=== PATIENT | female | born 1955 ===

== ENCOUNTER 2017-10-31 14:52 | Inpatient (IN) ==
[2017-10-31] MEDS ORDERED: ACETAMINOPHEN 325 MG TABLET PO PRN (17:07)
[2017-10-31] MEDS ORDERED: ONDANSETRON 4 MG/2 ML VIAL IV PRN (17:07)
[2017-10-31] MEDS ORDERED: ALBUTEROL/IPRATROPIUM 3 ML NEB RESP TX ONE (17:33)
[2017-10-31 18:17] LABS: Basophils % 0.6 % (0.0-0.8); Eosinophils # 0.1 10*3/uL (0.0-0.87); Eosinophils % 1.1 % (0.00-10.9); Hematocrit 36.5 VOL% (35.7-47.0); Hemoglobin 11.8 GM/DL (12.0-16.0); Immature Granulocytes % 0.5 %; Immature Granulocytes Absolute 0.03 #; Lymphocytes # 1.4 10*3/uL (1.4-4.0); Lymphocytes % 20.9 % (21.3-54.2); Mean Corpuscular HGB Conc 32.3 GM/DL (32-36); Mean Corpuscular Hemoglobin 35 PG (27-34); Mean Corpuscular Volume 108.6 FL (87-102); Mean Platelet Volume 9.5 FL (9.6-12.0); Monocytes # 0.6 10*3/uL (0.11-0.8); Monocytes % 8.9 % (1.7-12.7); Neutrophils # 4.5 10*3/uL (1.4-7.4); Platelet Count 131 T/CUMM (130-400); Red Blood Count 3.36 MC/CUMM (3.8-5.5); Red Cell Distribution Width 14.8 % (9.3-17.3); White Blood Count 6.6 T/CUMM (4-12)
[2017-10-31 18:42] LABS: INR 1.3; PT Patient Result 13.1 SECS
[2017-10-31 18:46] LABS: Albumin 2.1 G/DL (3.4-5.0); Bilirubin,Total 4.3 MG/DL (0.2-1.0); Calcium 8.1 MG/DL (8.5-10.1); Osmolality,Calculated 275.5 MOS/KG (273-304); Potassium 3.7 MMOL/L (3.5-5.1)
[2017-10-31] MEDS: ALBUTEROL/IPRATROPIUM 3 ML NEB RESP TX SCH (19:00)
[2017-10-31] MEDS ORDERED: FUROSEMIDE 40 MG/4 ML VIAL IV ONE (19:00)
[2017-10-31] MEDS: LEVOFLOXACIN INJ 750 MG in PREMIX 1 EACH IV SCH (20:34)
[2017-10-31] MEDS: ZALEPLON 5 MG CAPSULE PO PRN (20:50)
[2017-11-01] MEDS: ALBUTEROL/IPRATROPIUM 3 ML NEB RESP TX SCH ×4 (01:00→19:42)
[2017-11-01 04:15] LABS: Basophils # 0.1 10*3/uL (0.0-0.2); Basophils % 0.6 % (0.0-0.8); Eosinophils # 0.1 10*3/uL (0.0-0.87); Eosinophils % 1.4 % (0.00-10.9); Hematocrit 32.6 VOL% (35.7-47.0); Hemoglobin 11.1 GM/DL (12.0-16.0); Immature Granulocytes % 0.6 %; Immature Granulocytes Absolute 0.05 #; Lymphocytes # 1.7 10*3/uL (1.4-4.0); Mean Corpuscular Hemoglobin 35 PG (27-34); Mean Corpuscular Volume 102.8 FL (87-102); Mean Platelet Volume 9.7 FL (9.6-12.0); Monocytes % 12.2 % (1.7-12.7); Neutrophils # 5.4 10*3/uL (1.4-7.4); Neutrophils % 65.2 % (38.7-73.9); Platelet Count 125 T/CUMM (130-400); Red Blood Count 3.17 MC/CUMM (3.8-5.5); White Blood Count 8.3 T/CUMM (4-12)
[2017-11-01 04:56] LABS: Calcium 8.2 MG/DL (8.5-10.1); Potassium 3.6 MMOL/L (3.5-5.1); Thyroid Stimulating Hormone 1.74 uIU/ml (0.358-3.74)
[2017-11-01] MEDS: LEVOTHYROXINE 112 MCG TABLET PO SCH (05:43)
[2017-11-01] MEDS: PANTOPRAZOLE 40 MG TABLET PO SCH (10:03)
[2017-11-01] MEDS: LISINOPRIL 2.5 MG TABLET PO SCH (10:03)
[2017-11-01] MEDS: sitaGLIPtin 100 MG TABLET PO SCH (10:03)
[2017-11-01] MEDS ORDERED: FUROSEMIDE 40 MG/4 ML VIAL IV ONE (13:30)
[2017-11-01 19:04] LABS: RBC,Pleural Fluid 11450 T/CUMM
[2017-11-01 19:05] LABS: Lymphocytes,Pleural Fluid 73 %; Monocytes,Pleural Fluid 14 %; Neutrophils,Pleural Fluid 13 %
[2017-11-01] MEDS: MORPHINE 2 MG/1 ML SYRINGE IV PRN (20:05)
[2017-11-01] MEDS: LEVOFLOXACIN INJ 750 MG in PREMIX 1 EACH IV SCH (20:09)
[2017-11-02] MEDS: ALBUTEROL/IPRATROPIUM 3 ML NEB RESP TX SCH ×4 (00:42→19:48)
[2017-11-02] MEDS: LEVOTHYROXINE 112 MCG TABLET PO SCH (05:41)
[2017-11-02] MEDS: sitaGLIPtin 100 MG TABLET PO SCH (08:49)
[2017-11-02] MEDS: PANTOPRAZOLE 40 MG TABLET PO SCH (08:49)
[2017-11-02] MEDS: LISINOPRIL 2.5 MG TABLET PO SCH (08:49)
[2017-11-02] MEDS: LEVOFLOXACIN INJ 750 MG in PREMIX 1 EACH IV SCH ×3 (20:01→23:44)
[2017-11-03] MEDS: ALBUTEROL/IPRATROPIUM 3 ML NEB RESP TX SCH ×4 (00:22→19:20)
[2017-11-03] MEDS: MORPHINE 2 MG/1 ML SYRINGE IV PRN (03:24)
[2017-11-03] MEDS: LEVOTHYROXINE 112 MCG TABLET PO SCH (06:04)
[2017-11-03] MEDS: PANTOPRAZOLE 40 MG TABLET PO SCH (09:41)
[2017-11-03] MEDS: LISINOPRIL 2.5 MG TABLET PO SCH (09:41)
[2017-11-03] MEDS: sitaGLIPtin 100 MG TABLET PO SCH (09:41)
[2017-11-03] MEDS: ASPIRIN EC 81 MG TABLET PO SCH (09:41)
[2017-11-03] MEDS: LEVOFLOXACIN INJ 750 MG in PREMIX 1 EACH IV SCH (20:58)
[2017-11-03] MEDS: ZALEPLON 5 MG CAPSULE PO PRN (21:11)
[2017-11-04] MEDS: ALBUTEROL/IPRATROPIUM 3 ML NEB RESP TX SCH ×4 (00:55→19:27)
[2017-11-04] MEDS: LEVOTHYROXINE 112 MCG TABLET PO SCH (05:21)
[2017-11-04 05:54] LABS: Basophils % 0.6 % (0.0-0.8); Eosinophils # 0.2 10*3/uL (0.0-0.87); Eosinophils % 4.7 % (0.00-10.9); Hematocrit 27.3 VOL% (35.7-47.0); Hemoglobin 9.2 GM/DL (12.0-16.0); Immature Granulocytes Absolute 0.05 #; Lymphocytes # 1.3 10*3/uL (1.4-4.0); Lymphocytes % 25.3 % (21.3-54.2); Mean Corpuscular HGB Conc 33.7 GM/DL (32-36); Mean Corpuscular Hemoglobin 35 PG (27-34); Mean Corpuscular Volume 104.6 FL (87-102); Mean Platelet Volume 9.8 FL (9.6-12.0); Monocytes # 0.7 10*3/uL (0.11-0.8); Monocytes % 13.1 % (1.7-12.7); Neutrophils # 2.8 10*3/uL (1.4-7.4); Neutrophils % 55.3 % (38.7-73.9); Platelet Count 100 T/CUMM (130-400); Red Blood Count 2.61 MC/CUMM (3.8-5.5); Red Cell Distribution Width 14.9 % (9.3-17.3); White Blood Count 5.1 T/CUMM (4-12)
[2017-11-04 06:03] LABS: Calcium 7.4 MG/DL (8.5-10.1); Osmolality,Calculated 276.7 MOS/KG (273-304); Potassium 3.3 MMOL/L (3.5-5.1)
[2017-11-04 06:15] LABS: Macrocytosis 1+; Platelet Estimate Decreased
[2017-11-04] MEDS: ASPIRIN EC 81 MG TABLET PO SCH (09:21)
[2017-11-04] MEDS: sitaGLIPtin 100 MG TABLET PO SCH (09:21)
[2017-11-04] MEDS: PANTOPRAZOLE 40 MG TABLET PO SCH (09:21)
[2017-11-04] MEDS: LISINOPRIL 2.5 MG TABLET PO SCH (09:22)
[2017-11-04 11:01] LABS: Free T4 (Free Thyroxine) 1.6 NG/DL (0.76-1.46)
[2017-11-04] MEDS ORDERED: MAGNESIUM HYDROXIDE SUSP 30 ML UDCUP PO PRN (18:08)
[2017-11-04] MEDS ORDERED: LEVOFLOXACIN INJ 500 MG in PREMIX 1 EACH IV SCH (22:00)
[2017-11-05] MEDS: ALBUTEROL/IPRATROPIUM 3 ML NEB RESP TX SCH ×3 (01:27→12:55)
[2017-11-05] MEDS: LEVOTHYROXINE 112 MCG TABLET PO SCH (05:44)
[2017-11-05 07:17] LABS: Calcium 7.4 MG/DL (8.5-10.1); Osmolality,Calculated 280.4 MOS/KG (273-304); Potassium 3.6 MMOL/L (3.5-5.1)
[2017-11-05] MEDS: sitaGLIPtin 100 MG TABLET PO SCH (08:57)
[2017-11-05] MEDS: PANTOPRAZOLE 40 MG TABLET PO SCH (08:57)
[2017-11-05] MEDS: ASPIRIN EC 81 MG TABLET PO SCH (08:58)
[2017-11-05] MEDS: LISINOPRIL 2.5 MG TABLET PO SCH (09:00)
[2017-11-05 12:04] VITALS: BP 118/58
== END 2017-11-05 15:53 | disposition home or self-care (01) | DRG 187 ==
LOC: N.4E 16:12 → SUATTDRO 17:02
PROVIDERS: ADMIT Internal Medicine; ATTEND Family Medicine
PROC: IRGDHTC (2017-11-01 15:00)

== ENCOUNTER 2017-11-07 08:55 | Inpatient (IN) ==
[2017-11-07] MEDS ORDERED: ONDANSETRON 4 MG/2 ML VIAL IV PRN (13:02)
[2017-11-07] MEDS: LEVOFLOXACIN INJ 750 MG in PREMIX 1 EACH IV SCH (14:35)
[2017-11-07 16:48] LABS: Carcinoembryonic Antigen 6.2 NG/ML (0.0-5.0); Hepatitis A Ab IgM Quant 0.11 Index; Hepatitis A Ab IgM Result Negative (Negative); Hepatitis B Core IgM Quant 0.18 Index; Hepatitis B Core IgM Result Negative (Negative); Hepatitis B Surface Ag Quant < 0.10 Index; Hepatitis B Surface Ag Result Negative (Negative); Hepatitis C Virus Ab Quant 0.15 Index; Hepatitis C Virus Ab Result Negative (Negative)
[2017-11-07] MEDS ORDERED: FUROSEMIDE 40 MG/4 ML VIAL IV ONE (17:45)
[2017-11-07] MEDS: ENOXAPARIN 40 MG/0.4 ML SYRINGE SUBCUT SCH (20:53)
[2017-11-07] MEDS: SPIRONOLACTONE 25 MG TABLET PO SCH (20:54)
[2017-11-08 05:49] LABS: Basophils % 0.7 % (0.0-0.8); Eosinophils # 0.3 10*3/uL (0.0-0.87); Eosinophils % 5.1 % (0.00-10.9); Hematocrit 32.5 VOL% (35.7-47.0); Hemoglobin 11.1 GM/DL (12.0-16.0); Immature Granulocytes % 0.3 %; Immature Granulocytes Absolute 0.02 #; Lymphocytes # 1.5 10*3/uL (1.4-4.0); Lymphocytes % 25.7 % (21.3-54.2); Mean Corpuscular HGB Conc 34.2 GM/DL (32-36); Mean Corpuscular Hemoglobin 35 PG (27-34); Mean Corpuscular Volume 103.2 FL (87-102); Mean Platelet Volume 9.5 FL (9.6-12.0); Monocytes # 0.6 10*3/uL (0.11-0.8); Monocytes % 10.5 % (1.7-12.7); Neutrophils # 3.3 10*3/uL (1.4-7.4); Neutrophils % 57.7 % (38.7-73.9); Red Blood Count 3.15 MC/CUMM (3.8-5.5); Red Cell Distribution Width 14.6 % (9.3-17.3); White Blood Count 5.7 T/CUMM (4-12)
[2017-11-08] MEDS: LEVOTHYROXINE 112 MCG TABLET PO SCH (06:07)
[2017-11-08 06:16] LABS: Calcium 7.5 MG/DL (8.5-10.1); Osmolality,Calculated 276.5 MOS/KG (273-304); Potassium 3.7 MMOL/L (3.5-5.1)
[2017-11-08 06:25] LABS: Platelet Count 99 T/CUMM (130-400)
[2017-11-08 06:27] LABS: Hypochromasia Slight; Macrocytosis 1+; Platelet Estimate Decreased
[2017-11-08] MEDS: SPIRONOLACTONE 25 MG TABLET PO SCH ×2 (08:39→20:56)
[2017-11-08] MEDS: sitaGLIPtin 100 MG TABLET PO SCH (08:39)
[2017-11-08] MEDS: LEVOFLOXACIN INJ 750 MG in PREMIX 1 EACH IV SCH (13:29)
[2017-11-08] MEDS: ENOXAPARIN 40 MG/0.4 ML SYRINGE SUBCUT SCH (20:56)
[2017-11-09] MEDS: LEVOTHYROXINE 112 MCG TABLET PO SCH (05:33)
[2017-11-09 06:25] LABS: INR 1.2; PT Patient Result 12.7 SECS
[2017-11-09] MEDS: SPIRONOLACTONE 25 MG TABLET PO SCH ×2 (08:54→20:32)
[2017-11-09] MEDS: sitaGLIPtin 100 MG TABLET PO SCH (08:54)
[2017-11-09] MEDS: LEVOFLOXACIN INJ 750 MG in PREMIX 1 EACH IV SCH (16:56)
[2017-11-09] MEDS: MORPHINE 2 MG/1 ML SYRINGE IV PRN (20:33)
[2017-11-09] MEDS: ENOXAPARIN 40 MG/0.4 ML SYRINGE SUBCUT SCH (20:33)
[2017-11-10 06:10] LABS: Basophils % 0.6 % (0.0-0.8); Eosinophils # 0.3 10*3/uL (0.0-0.87); Hematocrit 28.8 VOL% (35.7-47.0); Hemoglobin 9.8 GM/DL (12.0-16.0); Immature Granulocytes % 0.5 %; Immature Granulocytes Absolute 0.03 #; Lymphocytes # 1.5 10*3/uL (1.4-4.0); Lymphocytes % 23.5 % (21.3-54.2); Mean Corpuscular Hemoglobin 35 PG (27-34); Mean Platelet Volume 9.6 FL (9.6-12.0); Monocytes # 0.6 10*3/uL (0.11-0.8); Monocytes % 9.4 % (1.7-12.7); Neutrophils # 3.8 10*3/uL (1.4-7.4); Red Blood Count 2.77 MC/CUMM (3.8-5.5); Red Cell Distribution Width 14.5 % (9.3-17.3); White Blood Count 6.2 T/CUMM (4-12)
[2017-11-10] MEDS: LEVOTHYROXINE 112 MCG TABLET PO SCH (06:17)
[2017-11-10 06:21] LABS: Platelet Count 88 T/CUMM (130-400)
[2017-11-10 06:29] LABS: Hypochromasia 2+; Platelet Estimate Decreased
[2017-11-10 06:44] LABS: Albumin 1.7 G/DL (3.4-5.0); Bilirubin,Total 2.7 MG/DL (0.2-1.0); Calcium 7.7 MG/DL (8.5-10.1); Osmolality,Calculated 274.7 MOS/KG (273-304); Potassium 3.8 MMOL/L (3.5-5.1); Total Protein 6.3 G/DL (6.4-8.3)
[2017-11-10] MEDS: sitaGLIPtin 100 MG TABLET PO SCH (08:41)
[2017-11-10] MEDS: SPIRONOLACTONE 25 MG TABLET PO SCH ×2 (08:41→20:43)
[2017-11-10] MEDS: LEVOFLOXACIN INJ 750 MG in PREMIX 1 EACH IV SCH (14:36)
[2017-11-10] MEDS: ENOXAPARIN 40 MG/0.4 ML SYRINGE SUBCUT SCH (20:44)
[2017-11-10] MEDS: MORPHINE 2 MG/1 ML SYRINGE IV PRN (23:39)
[2017-11-11 03:09] LABS: INR 1.2; PT Patient Result 12.8 SECS
[2017-11-11 03:18] LABS: Partial Thromboplastin Time 41.6 SECS (0-40)
[2017-11-11] MEDS ORDERED: SODIUM CHLORIDE 0.9% 1,000 ML IV PRN (03:24)
[2017-11-11] MEDS: LEVOTHYROXINE 112 MCG TABLET PO SCH (06:22)
[2017-11-11] MEDS ORDERED: ONDANSETRON 4 MG/2 ML VIAL IV PRN (09:17)
[2017-11-11] MEDS ORDERED: LIDOCAINE 1% INTRAPLEUR ONE (13:00)
[2017-11-11] MEDS ORDERED: NALOXONE 0.4 MG/ML VIAL IV PRN ×2 (13:39→15:34)
[2017-11-11] MEDS: MORPHINE 2 MG/1 ML SYRINGE IV PRN (13:45)
[2017-11-11] MEDS ORDERED: HYDROmorphone PCA 30 MG/30 ML SYRINGE IV SCH (14:00)
[2017-11-11] MEDS: LEVOFLOXACIN INJ 750 MG in PREMIX 1 EACH IV SCH (14:33)
[2017-11-11] MEDS: sitaGLIPtin 100 MG TABLET PO SCH (14:34)
[2017-11-11] MEDS: SPIRONOLACTONE 25 MG TABLET PO SCH ×2 (14:34→21:33)
[2017-11-11] MEDS: DOXYCYCLINE HYCLATE INTRAPLEUR SCH ×2 (15:37→15:38)
[2017-11-11] MEDS: MORPHINE PCA 30 MG/30 ML SYRINGE IV SCH (16:27)
[2017-11-11] MEDS: ENOXAPARIN 40 MG/0.4 ML SYRINGE SUBCUT SCH (21:33)
[2017-11-12 05:18] LABS: Basophils % 0.6 % (0.0-0.8); Eosinophils # 0.3 10*3/uL (0.0-0.87); Eosinophils % 3.9 % (0.00-10.9); Hematocrit 32.1 VOL% (35.7-47.0); Hemoglobin 10.9 GM/DL (12.0-16.0); Immature Granulocytes % 0.6 %; Immature Granulocytes Absolute 0.04 #; Lymphocytes # 1.3 10*3/uL (1.4-4.0); Lymphocytes % 20.1 % (21.3-54.2); Mean Corpuscular Hemoglobin 36 PG (27-34); Mean Platelet Volume 9.6 FL (9.6-12.0); Monocytes # 0.8 10*3/uL (0.11-0.8); Monocytes % 12.1 % (1.7-12.7); NRBC # 0.03 10*3/uL; Neutrophils # 4.1 10*3/uL (1.4-7.4); Neutrophils % 62.7 % (38.7-73.9); Red Cell Distribution Width 14.3 % (9.3-17.3); White Blood Count 6.5 T/CUMM (4-12)
[2017-11-12 05:23] LABS: Platelet Count 88 T/CUMM (130-400)
[2017-11-12 05:42] LABS: Hypochromasia 1+; Macrocytosis 1+
[2017-11-12 05:43] LABS: Platelet Estimate Decreased
[2017-11-12] MEDS: LEVOTHYROXINE 112 MCG TABLET PO SCH (06:09)
[2017-11-12] MEDS: sitaGLIPtin 100 MG TABLET PO SCH (08:58)
[2017-11-12] MEDS: SPIRONOLACTONE 25 MG TABLET PO SCH ×2 (08:58→20:45)
[2017-11-12] MEDS ORDERED: ALBUTEROL/IPRATROPIUM 3 ML NEB RESP TX PRN (10:38)
[2017-11-12] MEDS ORDERED: ALBUTEROL/IPRATROPIUM 3 ML NEB RESP TX SCH (13:00)
[2017-11-12] MEDS: LEVOFLOXACIN INJ 750 MG in PREMIX 1 EACH IV SCH (13:13)
[2017-11-12] MEDS: MORPHINE PCA 30 MG/30 ML SYRINGE IV SCH (15:10)
[2017-11-12] MEDS: POLYETHYLENE GLYCOL POWDER 17 GM PACK PO SCH (20:44)
[2017-11-12] MEDS: ENOXAPARIN 40 MG/0.4 ML SYRINGE SUBCUT SCH (20:45)
[2017-11-13] MEDS: LEVOTHYROXINE 112 MCG TABLET PO SCH (06:27)
[2017-11-13] MEDS: POLYETHYLENE GLYCOL POWDER 17 GM PACK PO SCH (08:43)
[2017-11-13] MEDS: sitaGLIPtin 100 MG TABLET PO SCH (08:43)
[2017-11-13] MEDS: SPIRONOLACTONE 25 MG TABLET PO SCH ×2 (08:43→20:35)
[2017-11-13] MEDS ORDERED: MORPHINE 4 MG/1 ML VIAL IV PRN (11:57)
[2017-11-13] MEDS: LEVOFLOXACIN INJ 750 MG in PREMIX 1 EACH IV SCH (14:05)
[2017-11-13] MEDS: MORPHINE PCA 30 MG/30 ML SYRINGE IV SCH (15:22)
[2017-11-13] MEDS: LACTULOSE 20 GM/30 ML UDCUP PO SCH (20:34)
[2017-11-13] MEDS: ENOXAPARIN 40 MG/0.4 ML SYRINGE SUBCUT SCH (20:35)
[2017-11-14] MEDS: LEVOTHYROXINE 112 MCG TABLET PO SCH (06:51)
[2017-11-14] MEDS ORDERED: sitaGLIPtin 100 MG TABLET PO SCH (08:24)
[2017-11-14] MEDS: sitaGLIPtin 25 MG TABLET PO SCH (09:11)
[2017-11-14] MEDS: LACTULOSE 20 GM/30 ML UDCUP PO SCH ×2 (09:11→20:04)
[2017-11-14] MEDS: SPIRONOLACTONE 25 MG TABLET PO SCH ×2 (09:11→20:03)
[2017-11-14] MEDS: LEVOFLOXACIN INJ 750 MG in PREMIX 1 EACH IV SCH (14:15)
[2017-11-14] MEDS: ENOXAPARIN 40 MG/0.4 ML SYRINGE SUBCUT SCH (20:04)
[2017-11-15 03:31] LABS: Basophils # 0.1 10*3/uL (0.0-0.2); Eosinophils # 0.3 10*3/uL (0.0-0.87); Eosinophils % 5.8 % (0.00-10.9); Hematocrit 29.6 VOL% (35.7-47.0); Hemoglobin 9.7 GM/DL (12.0-16.0); Immature Granulocytes % 0.2 %; Immature Granulocytes Absolute 0.01 #; Lymphocytes # 1.4 10*3/uL (1.4-4.0); Mean Corpuscular HGB Conc 32.8 GM/DL (32-36); Mean Corpuscular Hemoglobin 35 PG (27-34); Mean Corpuscular Volume 107.2 FL (87-102); Mean Platelet Volume 9.4 FL (9.6-12.0); Monocytes # 0.6 10*3/uL (0.11-0.8); Neutrophils # 2.6 10*3/uL (1.4-7.4); Platelet Count 79 T/CUMM (130-400); Red Blood Count 2.76 MC/CUMM (3.8-5.5); White Blood Count 4.9 T/CUMM (4-12)
[2017-11-15 03:44] LABS: Calcium 7.7 MG/DL (8.5-10.1); Osmolality,Calculated 274.7 MOS/KG (273-304); Potassium 4.1 MMOL/L (3.5-5.1)
[2017-11-15] MEDS: LEVOTHYROXINE 112 MCG TABLET PO SCH (06:13)
[2017-11-15 08:23] VITALS: BP 132/59
[2017-11-15] MEDS: SPIRONOLACTONE 25 MG TABLET PO SCH (08:30)
[2017-11-15] MEDS: sitaGLIPtin 25 MG TABLET PO SCH (08:30)
[2017-11-15] MEDS: LACTULOSE 20 GM/30 ML UDCUP PO SCH (08:33)
== END 2017-11-15 08:50 | disposition home or self-care (01) | DRG 433 ==
LOC: SUATTDRO 11:21 → N.4E 11:21
PROVIDERS: ADMIT Family Medicine; ATTEND Internal Medicine
PROC: IRGDHTC (2017-11-09 15:10)

== ENCOUNTER 2017-11-18 14:00 | Inpatient (IN) ==
[2017-11-18] MEDS ORDERED: ONDANSETRON 4 MG/2 ML VIAL IV PRN (18:58)
[2017-11-18] MEDS ORDERED: DOCUSATE SODIUM 100 MG CAPSULE PO PRN (18:58)
[2017-11-18] MEDS ORDERED: ACETAMINOPHEN 325 MG TABLET PO PRN (18:58)
[2017-11-18] MEDS ORDERED: DEXTROSE 50% 25 GM/50 ML VIAL IV PRN (19:00)
[2017-11-18] MEDS ORDERED: GLUCAGON 1 MG VIAL IM PRN (19:00)
[2017-11-18] MEDS: SPIRONOLACTONE 25 MG TABLET PO SCH (20:25)
[2017-11-18] MEDS: LACTULOSE 20 GM/30 ML UDCUP PO SCH (20:25)
[2017-11-18] MEDS: INSULIN REGULAR 100 UNIT/ML SUBCUT SCH (21:33)
[2017-11-19 06:02] LABS: Basophils % 0.5 % (0.0-0.8); Eosinophils # 0.3 10*3/uL (0.0-0.87); Eosinophils % 4.3 % (0.00-10.9); Hematocrit 32.4 VOL% (35.7-47.0); Hemoglobin 11.1 GM/DL (12.0-16.0); Immature Granulocytes % 0.5 %; Immature Granulocytes Absolute 0.03 #; Lymphocytes # 1.8 10*3/uL (1.4-4.0); Lymphocytes % 31.3 % (21.3-54.2); Mean Corpuscular HGB Conc 34.3 GM/DL (32-36); Mean Corpuscular Hemoglobin 36 PG (27-34); Mean Corpuscular Volume 105.2 FL (87-102); Mean Platelet Volume 9.5 FL (9.6-12.0); Monocytes # 0.7 10*3/uL (0.11-0.8); Monocytes % 11.7 % (1.7-12.7); Neutrophils % 51.7 % (38.7-73.9); Platelet Count 90 T/CUMM (130-400); Red Blood Count 3.08 MC/CUMM (3.8-5.5); Red Cell Distribution Width 15.9 % (9.3-17.3); White Blood Count 5.9 T/CUMM (4-12)
[2017-11-19] MEDS: LEVOTHYROXINE 112 MCG TABLET PO SCH (06:09)
[2017-11-19 06:22] LABS: Giant Platelets Few; Hypochromasia 1+; Platelet Estimate Decreased
[2017-11-19 06:28] LABS: Calcium 7.9 MG/DL (8.5-10.1); Osmolality,Calculated 274.7 MOS/KG (273-304); Potassium 4.2 MMOL/L (3.5-5.1)
[2017-11-19] MEDS: LISINOPRIL 2.5 MG TABLET PO SCH (08:19)
[2017-11-19] MEDS: sitaGLIPtin 100 MG TABLET PO SCH (08:20)
[2017-11-19] MEDS: PANTOPRAZOLE 40 MG TABLET PO SCH (08:20)
[2017-11-19] MEDS: hydroCHLOROthiazide 12.5 MG CAPSULE PO SCH (08:20)
[2017-11-19] MEDS: ASPIRIN EC 81 MG TABLET PO SCH (08:20)
[2017-11-19] MEDS: LACTULOSE 20 GM/30 ML UDCUP PO SCH ×2 (08:20→21:26)
[2017-11-19] MEDS: SPIRONOLACTONE 25 MG TABLET PO SCH ×2 (08:20→21:27)
[2017-11-19] MEDS: INSULIN REGULAR 100 UNIT/ML SUBCUT SCH ×4 (08:22→21:28)
[2017-11-19 09:26] LABS: INR 1.2
[2017-11-20] MEDS: INSULIN REGULAR 100 UNIT/ML SUBCUT SCH ×4 (07:53→20:50)
[2017-11-20] MEDS: hydroCHLOROthiazide 12.5 MG CAPSULE PO SCH (08:42)
[2017-11-20] MEDS: ASPIRIN EC 81 MG TABLET PO SCH (08:43)
[2017-11-20] MEDS: PANTOPRAZOLE 40 MG TABLET PO SCH (08:43)
[2017-11-20] MEDS: LEVOTHYROXINE 112 MCG TABLET PO SCH (08:43)
[2017-11-20] MEDS: sitaGLIPtin 100 MG TABLET PO SCH (08:43)
[2017-11-20] MEDS: SPIRONOLACTONE 25 MG TABLET PO SCH ×2 (08:44→20:15)
[2017-11-20] MEDS: LACTULOSE 20 GM/30 ML UDCUP PO SCH ×2 (08:44→20:19)
[2017-11-20] MEDS: LISINOPRIL 2.5 MG TABLET PO SCH (09:11)
[2017-11-21 05:13] LABS: Calcium 7.9 MG/DL (8.5-10.1)
[2017-11-21 05:14] LABS: Osmolality,Calculated 273.8 MOS/KG (273-304); Potassium 4.3 MMOL/L (3.5-5.1)
[2017-11-21] MEDS: LEVOTHYROXINE 112 MCG TABLET PO SCH (05:47)
[2017-11-21] MEDS: INSULIN REGULAR 100 UNIT/ML SUBCUT SCH ×4 (08:46→20:51)
[2017-11-21] MEDS: LISINOPRIL 2.5 MG TABLET PO SCH (09:18)
[2017-11-21] MEDS: sitaGLIPtin 100 MG TABLET PO SCH (09:18)
[2017-11-21] MEDS: LACTULOSE 20 GM/30 ML UDCUP PO SCH ×2 (09:18→20:51)
[2017-11-21] MEDS: SPIRONOLACTONE 25 MG TABLET PO SCH ×2 (09:18→20:51)
[2017-11-21] MEDS: ASPIRIN EC 81 MG TABLET PO SCH (09:18)
[2017-11-21] MEDS: PANTOPRAZOLE 40 MG TABLET PO SCH (09:18)
[2017-11-21] MEDS: FUROSEMIDE 40 MG TABLET PO SCH (09:18)
[2017-11-22] MEDS: LEVOTHYROXINE 112 MCG TABLET PO SCH (06:12)
[2017-11-22] MEDS: INSULIN REGULAR 100 UNIT/ML SUBCUT SCH ×4 (07:55→21:06)
[2017-11-22] MEDS: sitaGLIPtin 100 MG TABLET PO SCH (09:31)
[2017-11-22] MEDS: FUROSEMIDE 40 MG TABLET PO SCH (09:31)
[2017-11-22] MEDS: PANTOPRAZOLE 40 MG TABLET PO SCH (09:31)
[2017-11-22] MEDS: ASPIRIN EC 81 MG TABLET PO SCH (09:31)
[2017-11-22] MEDS: SPIRONOLACTONE 25 MG TABLET PO SCH ×2 (09:31→21:06)
[2017-11-22] MEDS: LISINOPRIL 2.5 MG TABLET PO SCH (09:31)
[2017-11-22] MEDS: LACTULOSE 20 GM/30 ML UDCUP PO SCH ×2 (09:32→21:01)
[2017-11-23 05:02] LABS: Basophils % 0.5 % (0.0-0.8); Eosinophils # 0.7 10*3/uL (0.0-0.87); Eosinophils % 9.1 % (0.00-10.9); Hematocrit 28.7 VOL% (35.7-47.0); Hemoglobin 9.6 GM/DL (12.0-16.0); Immature Granulocytes % 0.3 %; Immature Granulocytes Absolute 0.02 #; Lymphocytes # 1.8 10*3/uL (1.4-4.0); Lymphocytes % 22.4 % (21.3-54.2); Mean Corpuscular HGB Conc 33.4 GM/DL (32-36); Mean Corpuscular Hemoglobin 36 PG (27-34); Mean Corpuscular Volume 107.9 FL (87-102); Monocytes # 0.9 10*3/uL (0.11-0.8); Monocytes % 11.7 % (1.7-12.7); Neutrophils # 4.4 10*3/uL (1.4-7.4); Red Blood Count 2.66 MC/CUMM (3.8-5.5); Red Cell Distribution Width 16.2 % (9.3-17.3); White Blood Count 7.8 T/CUMM (4-12)
[2017-11-23 05:09] LABS: Platelet Count 97 T/CUMM (130-400)
[2017-11-23 05:30] LABS: Albumin 1.6 G/DL (3.4-5.0); Bilirubin,Total 2.9 MG/DL (0.2-1.0); Calcium 7.9 MG/DL (8.5-10.1); Osmolality,Calculated 278.7 MOS/KG (273-304); Potassium 3.8 MMOL/L (3.5-5.1); Total Protein 5.9 G/DL (6.4-8.3)
[2017-11-23] MEDS: LEVOTHYROXINE 112 MCG TABLET PO SCH (06:35)
[2017-11-23] MEDS: INSULIN REGULAR 100 UNIT/ML SUBCUT SCH ×4 (07:59→20:28)
[2017-11-23] MEDS: LISINOPRIL 2.5 MG TABLET PO SCH (10:17)
[2017-11-23] MEDS: sitaGLIPtin 100 MG TABLET PO SCH (10:17)
[2017-11-23] MEDS: FUROSEMIDE 40 MG TABLET PO SCH (10:17)
[2017-11-23] MEDS: SPIRONOLACTONE 25 MG TABLET PO SCH (10:17)
[2017-11-23] MEDS: PANTOPRAZOLE 40 MG TABLET PO SCH (10:17)
[2017-11-23] MEDS: LACTULOSE 20 GM/30 ML UDCUP PO SCH ×2 (10:18→20:25)
[2017-11-23] MEDS: ASPIRIN EC 81 MG TABLET PO SCH (10:18)
[2017-11-24] MEDS: LEVOTHYROXINE 112 MCG TABLET PO SCH (06:15)
[2017-11-24] MEDS: INSULIN REGULAR 100 UNIT/ML SUBCUT SCH ×2 (07:38→13:15)
[2017-11-24] MEDS ORDERED: FUROSEMIDE 20 MG TABLET PO SCH (09:00)
[2017-11-24] MEDS ORDERED: FOLIC ACID 1 MG TABLET PO SCH (09:00)
[2017-11-24] MEDS ORDERED: SPIRONOLACTONE 100 MG TABLET PO SCH (09:00)
[2017-11-24] MEDS: LACTULOSE 20 GM/30 ML UDCUP PO SCH (09:26)
[2017-11-24] MEDS: PANTOPRAZOLE 40 MG TABLET PO SCH (09:27)
[2017-11-24] MEDS: sitaGLIPtin 100 MG TABLET PO SCH (09:27)
[2017-11-24] MEDS: ASPIRIN EC 81 MG TABLET PO SCH (09:28)
[2017-11-24 12:08] VITALS: BP 100/45
== END 2017-11-24 15:53 | disposition home or self-care (01) | DRG 187 ==
LOC: SUATTDRO 17:45 → N.2E 17:45
PROVIDERS: ADMIT Internal Medicine; ATTEND Hospitalist

== ENCOUNTER 2017-12-20 06:58 | Inpatient (IN) ==
[2017-12-20] MEDS ORDERED: DEXTROSE 50% 25 GM/50 ML VIAL IV PRN ×2 (10:00→10:01)
[2017-12-20] MEDS ORDERED: GLUCAGON 1 MG VIAL IM PRN ×2 (10:00→10:01)
[2017-12-20] MEDS ORDERED: LEVOFLOXACIN INJ 500 MG in PREMIX 1 EACH IV SCH (10:00)
[2017-12-20] MEDS ORDERED: LEVOFLOXACIN INJ 100 ML IV ONE (11:15)
[2017-12-20] MEDS: LACTULOSE 20 GM/30 ML UDCUP PO SCH ×2 (11:25→21:31)
[2017-12-20 11:32] LABS: Ammonia 41 UMOL/L (11-32)
[2017-12-20] MEDS: SODIUM CHLORIDE 0.9% 1,000 ML IV SCH (11:34)
[2017-12-20 11:37] LABS: Lactic Acid 4.1 MMOL/L (0.4-2.0)
[2017-12-20 11:39] LABS: INR 1.7; PT Patient Result 18.1 SECS
[2017-12-20 11:51] LABS: Partial Thromboplastin Time 45.8 SECS (0-40)
[2017-12-20] MEDS: SPIRONOLACTONE 50 MG TABLET PO SCH (12:05)
[2017-12-20] MEDS: INSULIN REGULAR 100 UNIT/ML SUBCUT SCH ×3 (16:37→21:31)
[2017-12-20] MEDS: ACETAMINOPHEN 325 MG TABLET PO PRN (17:50)
[2017-12-20] MEDS: ZALEPLON 5 MG CAPSULE PO PRN (21:31)
[2017-12-20] MEDS: ONDANSETRON 4 MG/2 ML VIAL IV PRN (21:31)
[2017-12-21] MEDS ORDERED: ALBUMIN 5% 25 GM in PREMIX 1 EACH IV ONE (00:50)
[2017-12-21] MEDS: SODIUM CHLORIDE 0.9% 1,000 ML IV SCH ×3 (01:24→13:10)
[2017-12-21] MEDS ORDERED: ALBUMIN 25% 25 GM in PREMIX 1 EACH IV ONE (01:30)
[2017-12-21] MEDS ORDERED: SODIUM CHLORIDE 0.9% 250 ML IV ONE (02:50)
[2017-12-21] MEDS: ONDANSETRON 4 MG/2 ML VIAL IV PRN ×2 (04:13→08:53)
[2017-12-21] MEDS ORDERED: SODIUM CHLORIDE 0.9% 500 ML IV ONE (05:13)
[2017-12-21 05:37] LABS: Basophils % 0.1 % (0.0-0.8); Eosinophils # 0.1 10*3/uL (0.0-0.87); Eosinophils % 0.4 % (0.00-10.9); Immature Granulocytes % 4.9 %; Immature Granulocytes Absolute 0.89 #; Lymphocytes # 2.8 10*3/uL (1.4-4.0); Lymphocytes % 15.4 % (21.3-54.2); Mean Corpuscular HGB Conc 32.7 GM/DL (32-36); Mean Corpuscular Hemoglobin 37 PG (27-34); Mean Corpuscular Volume 112.5 FL (87-102); Mean Platelet Volume 9.9 FL (9.6-12.0); Monocytes % 10.9 % (1.7-12.7); NRBC # 0.06 10*3/uL; Neutrophils # 12.3 10*3/uL (1.4-7.4); Neutrophils % 68.3 % (38.7-73.9); Platelet Count 110 T/CUMM (130-400); Red Blood Count 1.52 MC/CUMM (3.8-5.5); Red Cell Distribution Width 16.7 % (9.3-17.3)
[2017-12-21 05:42] LABS: Hematocrit 17.1 VOL% (35.7-47.0); Hemoglobin 5.6 GM/DL (12.0-16.0)
[2017-12-21] MEDS ORDERED: NOREPINEPHRINE 4 MG/4 ML VIAL IV ONE (05:59)
[2017-12-21] MEDS: NOREPINEPHRINE 8 MG in SODIUM CHLORIDE 0.9% 242 ML IV PRN ×2 (06:00→10:26)
[2017-12-21 06:06] LABS: Hypochromasia 1+; Lymphocytes 11 % (20-55); Ovalocytes Slight; Platelet Estimate Decreased; Segmented Neutrophils 77 % (50-85); Total Cells Counted 100
[2017-12-21 06:11] LABS: Albumin 1.5 G/DL (3.4-5.0); Bilirubin,Total 6.7 MG/DL (0.2-1.0); Calcium 7.2 MG/DL (8.5-10.1); Osmolality,Calculated 283.1 MOS/KG (273-304); Total Protein 4.8 G/DL (6.4-8.3)
[2017-12-21] MEDS ORDERED: SODIUM CHLORIDE 0.9% 1,000 ML IV PRN ×2 (06:25→06:48)
[2017-12-21 06:26] LABS: Basophils % 0.1 % (0.0-0.8); Eosinophils # 0.1 10*3/uL (0.0-0.87); Eosinophils % 0.3 % (0.00-10.9); Hematocrit 18.9 VOL% (35.7-47.0); Immature Granulocytes % 4.4 %; Immature Granulocytes Absolute 0.77 #; Lymphocytes # 2.9 10*3/uL (1.4-4.0); Lymphocytes % 16.5 % (21.3-54.2); Mean Corpuscular HGB Conc 32.8 GM/DL (32-36); Mean Corpuscular Hemoglobin 37 PG (27-34); Mean Corpuscular Volume 111.8 FL (87-102); Monocytes # 1.9 10*3/uL (0.11-0.8); Monocytes % 10.9 % (1.7-12.7); NRBC # 0.08 10*3/uL; Neutrophils # 11.8 10*3/uL (1.4-7.4); Neutrophils % 67.8 % (38.7-73.9); Platelet Count 122 T/CUMM (130-400); Red Blood Count 1.69 MC/CUMM (3.8-5.5); Red Cell Distribution Width 16.5 % (9.3-17.3); White Blood Count 17.4 T/CUMM (4-12)
[2017-12-21 06:30] LABS: Potassium 6.5 MMOL/L (3.5-5.1)
[2017-12-21] MEDS ORDERED: SODIUM POLYSTYRENE SULFATE 15 GM/60 ML BOTTLE PO ONE ×3 (06:34→21:00)
[2017-12-21 06:37] LABS: INR 2.4
[2017-12-21 06:45] LABS: Hemoglobin 6.2 GM/DL (12.0-16.0); PT Patient Result 24.3 SECS; Partial Thromboplastin Time 52.1 SECS (0-40)
[2017-12-21 06:46] LABS: Albumin 1.6 G/DL (3.4-5.0); Bilirubin,Total 7.1 MG/DL (0.2-1.0); Calcium 7.2 MG/DL (8.5-10.1); Osmolality,Calculated 280.2 MOS/KG (273-304); Total Protein 4.9 G/DL (6.4-8.3)
[2017-12-21] MEDS: LEVOTHYROXINE 112 MCG TABLET PO SCH (06:46)
[2017-12-21 06:53] LABS: Amorphous Crystals,Urine Occasional /HPF (Few); Apearance,Urine CLOUDY (Clear); Blood, Urine Small mg/dL (Negative); Glucose,Urine (UA) 50 mg/dL (Negative); Ketones,Urine Negative (Negative); Nitrite,Urine Negative (Negative); Protein,Urine 30 MG/DL; Squamous Epithelial Cell,Urine Few /HPF (0-10); Urine Color Amber (Yellow); Urine Specific Gravity 1.021 (1.001-1.035); WBC,Urine 7 /HPF (0-6)
[2017-12-21 06:54] LABS: Albumin 1.6 G/DL (3.4-5.0); Bilirubin,Direct 4.92 MG/DL (0.0-0.20); Bilirubin,Indirect 1.9 MG/DL (0.0-1.0); Bilirubin,Total 6.8 MG/DL (0.2-1.0); Total Protein 5.1 G/DL (6.4-8.3)
[2017-12-21 06:55] LABS: Bilirubin,Urine Moderate mg/dL (Negative)
[2017-12-21 06:58] LABS: Potassium 6.7 MMOL/L (3.5-5.1)
[2017-12-21 07:00] LABS: Band Neutrophils 2 % (0-10); Hypochromasia 1+; Lymphocytes 14 % (20-55); Nucleated Red Blood Cells 1 (0-5); Ovalocytes Slight; Platelet Estimate Normal; Segmented Neutrophils 72 % (50-85); Total Cells Counted 100
[2017-12-21] MEDS: INSULIN REGULAR 100 UNIT/ML SUBCUT SCH ×4 (08:16→22:00)
[2017-12-21] MEDS: OCTREOTIDE 500 MCG in SODIUM CHLORIDE 0.9% 100 ML IV SCH ×2 (08:32→20:00)
[2017-12-21] MEDS ORDERED: OCTREOTIDE 100 MCG/ML SYRINGE IV ONE (09:00)
[2017-12-21] MEDS: PHYTONADIONE 10 MG/1 ML AMP SUBCUT SCH (09:15)
[2017-12-21] MEDS: LEVOFLOXACIN INJ 250 MG in PREMIX 1 EACH IV SCH (09:16)
[2017-12-21] MEDS: LACTULOSE 20 GM/30 ML UDCUP PO SCH ×2 (10:19→21:47)
[2017-12-21] MEDS: SPIRONOLACTONE 50 MG TABLET PO SCH (10:26)
[2017-12-21] MEDS: PANTOPRAZOLE 40 MG VIAL IV SCH (10:28)
[2017-12-21 12:39] LABS: Calcium 7.6 MG/DL (8.5-10.1)
[2017-12-21] MEDS: NOREPINEPHRINE 16 MG in SODIUM CHLORIDE 0.9% 234 ML IV PRN ×2 (14:23→20:48)
[2017-12-21] MEDS ORDERED: FUROSEMIDE 40 MG/4 ML VIAL IV ONE (14:31)
[2017-12-21 18:55] LABS: Hematocrit 24.5 VOL% (35.7-47.0); Hemoglobin 8.3 GM/DL (12.0-16.0)
[2017-12-21] MEDS: ZALEPLON 5 MG CAPSULE PO PRN (21:51)
[2017-12-22] MEDS: NOREPINEPHRINE 16 MG in SODIUM CHLORIDE 0.9% 234 ML IV PRN ×2 (04:21→11:45)
[2017-12-22 05:34] LABS: INR 1.6; PT Patient Result 16.4 SECS
[2017-12-22 05:53] LABS: Calcium 7.4 MG/DL (8.5-10.1); Osmolality,Calculated 291.7 MOS/KG (273-304); Potassium 4.5 MMOL/L (3.5-5.1)
[2017-12-22 06:07] LABS: Bilirubin,Direct 5.43 MG/DL (0.0-0.20); Bilirubin,Indirect 2.6 MG/DL (0.0-1.0); Total Protein 5.8 G/DL (6.4-8.3)
[2017-12-22] MEDS: LEVOTHYROXINE 112 MCG TABLET PO SCH (06:13)
[2017-12-22] MEDS: SODIUM CHLORIDE 0.9% 1,000 ML IV SCH ×2 (06:34→09:16)
[2017-12-22] MEDS: OCTREOTIDE 500 MCG in SODIUM CHLORIDE 0.9% 100 ML IV SCH (06:49)
[2017-12-22] MEDS: INSULIN REGULAR 100 UNIT/ML SUBCUT SCH ×4 (08:52→21:58)
[2017-12-22] MEDS: LACTULOSE 20 GM/30 ML UDCUP PO SCH ×2 (08:52→21:30)
[2017-12-22] MEDS ORDERED: ETOMIDATE 20 MG/10 ML VIAL IV ONE (09:14)
[2017-12-22] MEDS ORDERED: LIDOCAINE 1% 5 ML VIAL ONE (09:14)
[2017-12-22 09:18] LABS: Basophils # 0.1 10*3/uL (0.0-0.2); Basophils % 0.4 % (0.0-0.8); Eosinophils # 0.4 10*3/uL (0.0-0.87); Eosinophils % 2.7 % (0.00-10.9); Hematocrit 26.1 VOL% (35.7-47.0); Hemoglobin 8.7 GM/DL (12.0-16.0); Immature Granulocytes % 6.6 %; Immature Granulocytes Absolute 1.03 #; Lymphocytes # 2.9 10*3/uL (1.4-4.0); Lymphocytes % 18.8 % (21.3-54.2); Mean Corpuscular HGB Conc 33.3 GM/DL (32-36); Mean Corpuscular Hemoglobin 34 PG (27-34); Mean Platelet Volume 9.3 FL (9.6-12.0); Monocytes # 2.5 10*3/uL (0.11-0.8); Monocytes % 16.2 % (1.7-12.7); NRBC # 0.23 10*3/uL; Neutrophils # 8.7 10*3/uL (1.4-7.4); Neutrophils % 55.3 % (38.7-73.9); Platelet Count 130 T/CUMM (130-400); Red Blood Count 2.56 MC/CUMM (3.8-5.5); Red Cell Distribution Width 19.8 % (9.3-17.3); White Blood Count 15.7 T/CUMM (4-12)
[2017-12-22 09:44] LABS: Eosinophils 2 % (0-10); Lymphocytes 17 % (20-55); Nucleated Red Blood Cells 2 (0-5); Segmented Neutrophils 66 % (50-85); Total Cells Counted 100
[2017-12-22] MEDS ORDERED: PANTOPRAZOLE 40 MG VIAL IV ONE (09:44)
[2017-12-22 09:46] LABS: Hypochromasia 1+; Polychromasia Slight
[2017-12-22 09:47] LABS: Microcytosis Slight
[2017-12-22] MEDS: PANTOPRAZOLE 40 MG VIAL IV SCH ×3 (09:58→21:30)
[2017-12-22] MEDS: LEVOFLOXACIN INJ 250 MG in PREMIX 1 EACH IV SCH (09:58)
[2017-12-22] MEDS: PHYTONADIONE 10 MG/1 ML AMP SUBCUT SCH (09:59)
[2017-12-22] MEDS: METOCLOPRAMIDE 10 MG/2 ML VIAL IV SCH ×2 (12:31→18:14)
[2017-12-22] MEDS ORDERED: SODIUM CHLORIDE 0.9% 1,000 ML IV PRN (14:27)
[2017-12-22] MEDS ORDERED: ERTAPENEM 1,000 MG in SODIUM CHLORIDE 0.9% 100 ML IV SCH (15:30)
[2017-12-22] MEDS: ERTAPENEM 500 MG in SODIUM CHLORIDE 0.9% 100 ML IV SCH (16:04)
[2017-12-22] MEDS: ZALEPLON 5 MG CAPSULE PO PRN (21:30)
[2017-12-23] MEDS: METOCLOPRAMIDE 10 MG/2 ML VIAL IV SCH ×5 (01:21→23:03)
[2017-12-23 04:56] LABS: Albumin 1.8 G/DL (3.4-5.0); Bilirubin,Total 7.5 MG/DL (0.2-1.0); Calcium 7.2 MG/DL (8.5-10.1); Osmolality,Calculated 291.4 MOS/KG (273-304); Potassium 3.7 MMOL/L (3.5-5.1); Total Protein 5.1 G/DL (6.4-8.3)
[2017-12-23 05:03] LABS: Albumin 1.9 G/DL (3.4-5.0); Bilirubin,Direct 3.51 MG/DL (0.0-0.20); Bilirubin,Indirect 2.5 MG/DL (0.0-1.0); Total Protein 5.1 G/DL (6.4-8.3)
[2017-12-23 05:30] LABS: INR 1.4; PT Patient Result 14.5 SECS
[2017-12-23 06:56] LABS: Basophils % 0.5 % (0.0-0.8); Eosinophils # 0.3 10*3/uL (0.0-0.87); Eosinophils % 3.8 % (0.00-10.9); Hematocrit 24.1 VOL% (35.7-47.0); Hemoglobin 8.2 GM/DL (12.0-16.0); Immature Granulocytes % 5.9 %; Immature Granulocytes Absolute 0.46 #; Lymphocytes # 2.1 10*3/uL (1.4-4.0); Lymphocytes % 27.4 % (21.3-54.2); Mean Corpuscular Hemoglobin 34 PG (27-34); Mean Corpuscular Volume 99.2 FL (87-102); Mean Platelet Volume 8.8 FL (9.6-12.0); Monocytes % 12.9 % (1.7-12.7); NRBC # 0.08 10*3/uL; Neutrophils # 3.9 10*3/uL (1.4-7.4); Neutrophils % 49.5 % (38.7-73.9); Platelet Count 76 T/CUMM (130-400); Red Blood Count 2.43 MC/CUMM (3.8-5.5); Red Cell Distribution Width 20.2 % (9.3-17.3); White Blood Count 7.8 T/CUMM (4-12)
[2017-12-23] MEDS: LEVOTHYROXINE 112 MCG TABLET PO SCH (07:13)
[2017-12-23] MEDS: SODIUM CHLORIDE 0.9% 1,000 ML IV SCH (07:13)
[2017-12-23] MEDS: INSULIN REGULAR 100 UNIT/ML SUBCUT SCH ×4 (07:39→20:49)
[2017-12-23 07:55] LABS: Band Neutrophils 1 % (0-10); Eosinophils 4 % (0-10); Lymphocytes 23 % (20-55); Myelocytes 3 %; Nucleated Red Blood Cells 1 (0-5); Segmented Neutrophils 61 % (50-85); Total Cells Counted 100
[2017-12-23 07:56] LABS: Hypochromasia Slight; Microcytosis Slight; Platelet Estimate Decreased
[2017-12-23] MEDS: FUROSEMIDE 40 MG/4 ML VIAL IV SCH ×2 (08:17→15:57)
[2017-12-23] MEDS: PHYTONADIONE 10 MG/1 ML AMP SUBCUT SCH (09:32)
[2017-12-23] MEDS: LACTULOSE 20 GM/30 ML UDCUP PO SCH ×2 (09:32→20:49)
[2017-12-23] MEDS: PANTOPRAZOLE 40 MG VIAL IV SCH (09:33)
[2017-12-23] MEDS: ZINC OXIDE PASTE 113 GM TUBE TOP SCH ×2 (14:04→20:50)
[2017-12-23] MEDS ORDERED: CLARITHROMYCIN 500 MG TABLET PO SCH (14:30)
[2017-12-23] MEDS ORDERED: AMOXICILLIN 500 MG CAPSULE PO SCH (14:30)
[2017-12-23] MEDS: ERTAPENEM 500 MG in SODIUM CHLORIDE 0.9% 100 ML IV SCH (15:57)
[2017-12-23] MEDS: CLARITHROMYCIN 500 MG TABLET PO SCH (20:50)
[2017-12-23] MEDS: AMOXICILLIN 500 MG CAPSULE PO SCH (20:50)
[2017-12-23] MEDS: PANTOPRAZOLE 40 MG TABLET PO SCH (20:50)
[2017-12-24 05:41] LABS: Basophils # 0.1 10*3/uL (0.0-0.2); Basophils % 0.7 % (0.0-0.8); Eosinophils # 0.3 10*3/uL (0.0-0.87); Eosinophils % 3.7 % (0.00-10.9); Hematocrit 24.5 VOL% (35.7-47.0); Hemoglobin 8.2 GM/DL (12.0-16.0); Immature Granulocytes Absolute 0.49 #; Lymphocytes # 1.5 10*3/uL (1.4-4.0); Lymphocytes % 21.6 % (21.3-54.2); Mean Corpuscular HGB Conc 33.5 GM/DL (32-36); Mean Corpuscular Hemoglobin 34 PG (27-34); Mean Corpuscular Volume 102.1 FL (87-102); Mean Platelet Volume 9.3 FL (9.6-12.0); Monocytes # 0.9 10*3/uL (0.11-0.8); Monocytes % 12.1 % (1.7-12.7); NRBC # 0.03 10*3/uL; Neutrophils # 3.9 10*3/uL (1.4-7.4); Neutrophils % 54.9 % (38.7-73.9); Red Cell Distribution Width 19.8 % (9.3-17.3); White Blood Count 7.1 T/CUMM (4-12)
[2017-12-24 05:42] LABS: Platelet Count 69 T/CUMM (130-400)
[2017-12-24 05:48] LABS: INR 1.4; PT Patient Result 14.7 SECS
[2017-12-24 06:01] LABS: Band Neutrophils 1 % (0-10); Eosinophils 5 % (0-10); Lymphocytes 15 % (20-55); Metamyelocytes 1 %; Myelocytes 1 %; Segmented Neutrophils 69 % (50-85); Total Cells Counted 100
[2017-12-24 06:02] LABS: Hypochromasia 1+; Macrocytosis 1+; Platelet Estimate Decreased; Polychromasia Slight
[2017-12-24 06:16] LABS: Albumin 1.6 G/DL (3.4-5.0); Bilirubin,Total 5.2 MG/DL (0.2-1.0); Calcium 6.9 MG/DL (8.5-10.1); Osmolality,Calculated 288.7 MOS/KG (273-304); Potassium 3.2 MMOL/L (3.5-5.1); Total Protein 4.9 G/DL (6.4-8.3)
[2017-12-24] MEDS: METOCLOPRAMIDE 10 MG/2 ML VIAL IV SCH ×3 (06:20→18:16)
[2017-12-24] MEDS: LEVOTHYROXINE 112 MCG TABLET PO SCH (06:20)
[2017-12-24] MEDS: FUROSEMIDE 40 MG/4 ML VIAL IV SCH ×2 (08:05→16:19)
[2017-12-24] MEDS: CLARITHROMYCIN 500 MG TABLET PO SCH ×2 (08:06→20:57)
[2017-12-24] MEDS: LACTULOSE 20 GM/30 ML UDCUP PO SCH ×2 (08:06→20:58)
[2017-12-24] MEDS: ZINC OXIDE PASTE 113 GM TUBE TOP SCH ×2 (08:06→20:58)
[2017-12-24] MEDS: PANTOPRAZOLE 40 MG TABLET PO SCH ×2 (08:06→20:58)
[2017-12-24] MEDS: AMOXICILLIN 500 MG CAPSULE PO SCH ×2 (08:06→20:58)
[2017-12-24] MEDS: INSULIN REGULAR 100 UNIT/ML SUBCUT SCH ×4 (08:06→20:57)
[2017-12-24] MEDS: POTASSIUM CHLORIDE 20 MEQ TABLET PO SCH ×2 (12:13→20:57)
[2017-12-24 16:16] LABS: RBC,Pleural Fluid 12400 T/CUMM
[2017-12-24] MEDS: ERTAPENEM 500 MG in SODIUM CHLORIDE 0.9% 100 ML IV SCH (16:18)
[2017-12-24 16:52] LABS: Lymphocytes,Pleural Fluid 29 %; Monocytes,Pleural Fluid 11 %; Neutrophils,Pleural Fluid 60 %
[2017-12-24] MEDS ORDERED: TUBERCULIN SKIN TEST 0.1 ML SYRINGE INTRADERM ONE (17:12)
[2017-12-24] MEDS: ZALEPLON 5 MG CAPSULE PO PRN (20:57)
[2017-12-25] MEDS: METOCLOPRAMIDE 10 MG/2 ML VIAL IV SCH ×5 (00:38→23:45)
[2017-12-25 04:54] LABS: Basophils % 0.6 % (0.0-0.8); Eosinophils # 0.2 10*3/uL (0.0-0.87); Eosinophils % 2.5 % (0.00-10.9); Hematocrit 24.6 VOL% (35.7-47.0); Immature Granulocytes % 6.9 %; Immature Granulocytes Absolute 0.46 #; Lymphocytes # 1.2 10*3/uL (1.4-4.0); Lymphocytes % 18.2 % (21.3-54.2); Mean Corpuscular HGB Conc 32.5 GM/DL (32-36); Mean Corpuscular Hemoglobin 33 PG (27-34); Mean Corpuscular Volume 102.5 FL (87-102); Mean Platelet Volume 9.1 FL (9.6-12.0); Monocytes # 0.9 10*3/uL (0.11-0.8); Monocytes % 13.5 % (1.7-12.7); Neutrophils # 3.9 10*3/uL (1.4-7.4); Neutrophils % 58.3 % (38.7-73.9); Platelet Count 63 T/CUMM (130-400); White Blood Count 6.7 T/CUMM (4-12)
[2017-12-25 05:06] LABS: INR 1.4
[2017-12-25 05:22] LABS: Band Neutrophils 2 % (0-10); Eosinophils 2 % (0-10); Lymphocytes 13 % (20-55); Segmented Neutrophils 75 % (50-85); Total Cells Counted 100
[2017-12-25 05:24] LABS: Macrocytosis 1+
[2017-12-25 05:25] LABS: Polychromasia Slight
[2017-12-25 05:26] LABS: Hypochromasia 1+
[2017-12-25 05:27] LABS: Albumin 1.7 G/DL (3.4-5.0); Bilirubin,Total 4.2 MG/DL (0.2-1.0); Calcium 7.1 MG/DL (8.5-10.1); Osmolality,Calculated 288.7 MOS/KG (273-304); Platelet Estimate Decreased; Potassium 3.4 MMOL/L (3.5-5.1); Total Protein 5.1 G/DL (6.4-8.3)
[2017-12-25] MEDS: LEVOTHYROXINE 112 MCG TABLET PO SCH (06:24)
[2017-12-25] MEDS ORDERED: SODIUM CHLORIDE 0.9% 250 ML IV ONE (08:16)
[2017-12-25] MEDS: FUROSEMIDE 40 MG/4 ML VIAL IV SCH ×2 (08:30→15:34)
[2017-12-25] MEDS: CLARITHROMYCIN 500 MG TABLET PO SCH ×2 (08:30→21:53)
[2017-12-25] MEDS: LACTULOSE 20 GM/30 ML UDCUP PO SCH ×2 (08:30→21:53)
[2017-12-25] MEDS: ZINC OXIDE PASTE 113 GM TUBE TOP SCH ×2 (08:30→21:56)
[2017-12-25] MEDS: AMOXICILLIN 500 MG CAPSULE PO SCH ×2 (08:30→21:53)
[2017-12-25] MEDS: PANTOPRAZOLE 40 MG TABLET PO SCH ×2 (08:30→21:53)
[2017-12-25] MEDS: INSULIN REGULAR 100 UNIT/ML SUBCUT SCH ×4 (08:31→21:54)
[2017-12-25] MEDS ORDERED: VANCOMYCIN INJ 2,000 MG in SODIUM CHLORIDE 0.9% 500 ML IV PRN (14:09)
[2017-12-25] MEDS ORDERED: VANCOMYCIN INJ 2,000 MG in SODIUM CHLORIDE 0.9% 500 ML IV ONE (15:30)
[2017-12-25] MEDS: ERTAPENEM 500 MG in SODIUM CHLORIDE 0.9% 100 ML IV SCH (18:28)
[2017-12-26] MEDS: METOCLOPRAMIDE 10 MG/2 ML VIAL IV SCH ×4 (05:47→23:08)
[2017-12-26] MEDS: LEVOTHYROXINE 112 MCG TABLET PO SCH (05:49)
[2017-12-26 07:30] LABS: Basophils % 0.4 % (0.0-0.8); Eosinophils # 0.2 10*3/uL (0.0-0.87); Eosinophils % 3.5 % (0.00-10.9); Hematocrit 23.3 VOL% (35.7-47.0); Immature Granulocytes % 5.8 %; Immature Granulocytes Absolute 0.33 #; Lymphocytes # 1.1 10*3/uL (1.4-4.0); Mean Corpuscular HGB Conc 34.3 GM/DL (32-36); Mean Corpuscular Hemoglobin 35 PG (27-34); Mean Corpuscular Volume 100.4 FL (87-102); Mean Platelet Volume 9.7 FL (9.6-12.0); Monocytes # 0.8 10*3/uL (0.11-0.8); Monocytes % 13.9 % (1.7-12.7); Neutrophils # 3.2 10*3/uL (1.4-7.4); Neutrophils % 56.4 % (38.7-73.9); Platelet Count 54 T/CUMM (130-400); Red Blood Count 2.32 MC/CUMM (3.8-5.5); Red Cell Distribution Width 20.1 % (9.3-17.3); White Blood Count 5.7 T/CUMM (4-12)
[2017-12-26 07:59] LABS: Albumin 1.5 G/DL (3.4-5.0); Bilirubin,Total 3.5 MG/DL (0.2-1.0); Osmolality,Calculated 289.5 MOS/KG (273-304); Potassium 3.3 MMOL/L (3.5-5.1); Total Protein 5.3 G/DL (6.4-8.3)
[2017-12-26 08:23] LABS: INR 1.4; PT Patient Result 14.3 SECS
[2017-12-26] MEDS: CLARITHROMYCIN 500 MG TABLET PO SCH ×2 (08:46→20:37)
[2017-12-26] MEDS: FUROSEMIDE 40 MG/4 ML VIAL IV SCH ×3 (08:46→17:25)
[2017-12-26] MEDS: LACTULOSE 20 GM/30 ML UDCUP PO SCH ×3 (08:46→20:38)
[2017-12-26] MEDS: AMOXICILLIN 500 MG CAPSULE PO SCH ×2 (08:46→20:35)
[2017-12-26] MEDS: ZINC OXIDE PASTE 113 GM TUBE TOP SCH ×2 (08:47→20:42)
[2017-12-26] MEDS: PANTOPRAZOLE 40 MG TABLET PO SCH ×2 (08:47→20:35)
[2017-12-26] MEDS: INSULIN REGULAR 100 UNIT/ML SUBCUT SCH ×4 (08:47→20:35)
[2017-12-26 08:49] LABS: Band Neutrophils 1 % (0-10); Eosinophils 4 % (0-10); Hypochromasia Slight; Lymphocytes 20 % (20-55); Platelet Estimate Decreased; Segmented Neutrophils 70 % (50-85); Total Cells Counted 100
[2017-12-26] MEDS ORDERED: POTASSIUM CHLORIDE 10 MEQ TABLET PO SCH (09:00)
[2017-12-26] MEDS ORDERED: POTASSIUM CHLORIDE 20 MEQ TABLET PO ONE (12:15)
[2017-12-26] MEDS ORDERED: INSULIN GLARGINE 100 UNIT/ML SUBCUT SCH (12:30)
[2017-12-26 14:00] LABS: Total Protein,Body Fluid 2.9 G/DL
[2017-12-26 14:04] LABS: Lymphocytes,Pleural Fluid 32 %; Monocytes,Pleural Fluid 1 %; Neutrophils,Pleural Fluid 67 %; RBC,Pleural Fluid 32623 T/CUMM
[2017-12-26] MEDS: SPIRONOLACTONE 25 MG TABLET PO SCH ×2 (14:43→20:38)
[2017-12-26] MEDS: ERTAPENEM 500 MG in SODIUM CHLORIDE 0.9% 100 ML IV SCH (14:43)
[2017-12-26] MEDS: INSULIN GLARGINE 100 UNIT/ML SUBCUT SCH (20:47)
[2017-12-27] MEDS: FUROSEMIDE 40 MG/4 ML VIAL IV SCH ×3 (01:22→17:09)
[2017-12-27] MEDS: METOCLOPRAMIDE 10 MG/2 ML VIAL IV SCH ×3 (05:41→17:10)
[2017-12-27] MEDS: LEVOTHYROXINE 112 MCG TABLET PO SCH (05:41)
[2017-12-27 07:00] LABS: Albumin 1.7 G/DL (3.4-5.0); Bilirubin,Total 3.8 MG/DL (0.2-1.0); Calcium 7.4 MG/DL (8.5-10.1); Osmolality,Calculated 289.5 MOS/KG (273-304); Potassium 3.4 MMOL/L (3.5-5.1); Total Protein 5.6 G/DL (6.4-8.3)
[2017-12-27 07:08] LABS: Basophils % 0.5 % (0.0-0.8); Eosinophils # 0.2 10*3/uL (0.0-0.87); Eosinophils % 2.9 % (0.00-10.9); Hematocrit 24.7 VOL% (35.7-47.0); Hemoglobin 8.4 GM/DL (12.0-16.0); Immature Granulocytes % 4.4 %; Immature Granulocytes Absolute 0.24 #; Lymphocytes # 1.1 10*3/uL (1.4-4.0); Lymphocytes % 20.9 % (21.3-54.2); Mean Corpuscular Hemoglobin 34 PG (27-34); Mean Corpuscular Volume 100.4 FL (87-102); Mean Platelet Volume 9.9 FL (9.6-12.0); Monocytes # 0.7 10*3/uL (0.11-0.8); Monocytes % 11.9 % (1.7-12.7); NRBC # 0.03 10*3/uL; Neutrophils # 3.2 10*3/uL (1.4-7.4); Neutrophils % 59.4 % (38.7-73.9); Platelet Count 58 T/CUMM (130-400); Red Blood Count 2.46 MC/CUMM (3.8-5.5); Red Cell Distribution Width 20.1 % (9.3-17.3); White Blood Count 5.5 T/CUMM (4-12)
[2017-12-27 07:15] LABS: INR 1.3; PT Patient Result 13.6 SECS
[2017-12-27 08:34] LABS: Eosinophils 5 % (0-10); Lymphocytes 12 % (20-55); Segmented Neutrophils 74 % (50-85); Total Cells Counted 100
[2017-12-27 08:35] LABS: Hypochromasia 2+; Platelet Estimate Decreased; Polychromasia Slight
[2017-12-27] MEDS: INSULIN GLARGINE 100 UNIT/ML SUBCUT SCH (09:31)
[2017-12-27] MEDS: LACTULOSE 20 GM/30 ML UDCUP PO SCH ×3 (09:31→21:31)
[2017-12-27] MEDS: CLARITHROMYCIN 500 MG TABLET PO SCH ×2 (09:32→21:30)
[2017-12-27] MEDS: ZINC OXIDE PASTE 113 GM TUBE TOP SCH ×2 (09:32→21:32)
[2017-12-27] MEDS: PANTOPRAZOLE 40 MG TABLET PO SCH ×2 (09:32→21:30)
[2017-12-27] MEDS: POTASSIUM CHLORIDE 10 MEQ TABLET PO SCH (09:32)
[2017-12-27] MEDS: SPIRONOLACTONE 25 MG TABLET PO SCH ×2 (09:32→21:30)
[2017-12-27] MEDS: AMOXICILLIN 500 MG CAPSULE PO SCH ×2 (09:32→21:31)
[2017-12-27] MEDS: INSULIN REGULAR 100 UNIT/ML SUBCUT SCH ×4 (09:32→21:32)
[2017-12-27] MEDS ORDERED: VANCOMYCIN INJ 2,000 MG in SODIUM CHLORIDE 0.9% 500 ML IV ONE (15:00)
[2017-12-27] MEDS: ERTAPENEM 500 MG in SODIUM CHLORIDE 0.9% 100 ML IV SCH (18:17)
[2017-12-28] MEDS: METOCLOPRAMIDE 10 MG/2 ML VIAL IV SCH ×4 (00:20→17:42)
[2017-12-28] MEDS: FUROSEMIDE 40 MG/4 ML VIAL IV SCH ×3 (01:40→17:41)
[2017-12-28] MEDS: LEVOTHYROXINE 112 MCG TABLET PO SCH (05:31)
[2017-12-28 05:59] LABS: Albumin 1.5 G/DL (3.4-5.0); Bilirubin,Total 3.3 MG/DL (0.2-1.0); Calcium 7.2 MG/DL (8.5-10.1); Osmolality,Calculated 284.8 MOS/KG (273-304); Potassium 3.6 MMOL/L (3.5-5.1); Total Protein 5.4 G/DL (6.4-8.3)
[2017-12-28] MEDS ORDERED: ALTEPLASE 2 MG VIAL INTRAPLEUR ONE (09:05)
[2017-12-28 09:44] LABS: Basophils % 0.5 % (0.0-0.8); Eosinophils # 0.2 10*3/uL (0.0-0.87); Eosinophils % 3.3 % (0.00-10.9); Hematocrit 24.2 VOL% (35.7-47.0); Immature Granulocytes % 1.6 %; Immature Granulocytes Absolute 0.09 #; Lymphocytes # 1.1 10*3/uL (1.4-4.0); Lymphocytes % 18.3 % (21.3-54.2); Mean Corpuscular HGB Conc 33.1 GM/DL (32-36); Mean Corpuscular Hemoglobin 35 PG (27-34); Mean Corpuscular Volume 104.3 FL (87-102); Mean Platelet Volume 9.9 FL (9.6-12.0); Monocytes # 0.7 10*3/uL (0.11-0.8); Monocytes % 12.3 % (1.7-12.7); Neutrophils # 3.7 10*3/uL (1.4-7.4); Red Blood Count 2.32 MC/CUMM (3.8-5.5); Red Cell Distribution Width 20.3 % (9.3-17.3); White Blood Count 5.8 T/CUMM (4-12)
[2017-12-28 10:13] LABS: Platelet Count 61 T/CUMM (130-400)
[2017-12-28] MEDS: CLARITHROMYCIN 500 MG TABLET PO SCH ×2 (10:20→22:54)
[2017-12-28] MEDS: AMOXICILLIN 500 MG CAPSULE PO SCH ×2 (10:20→22:55)
[2017-12-28] MEDS: LACTULOSE 20 GM/30 ML UDCUP PO SCH ×3 (10:21→22:55)
[2017-12-28] MEDS: ZINC OXIDE PASTE 113 GM TUBE TOP SCH ×2 (10:21→22:55)
[2017-12-28] MEDS: PANTOPRAZOLE 40 MG TABLET PO SCH ×2 (10:21→22:56)
[2017-12-28] MEDS: POTASSIUM CHLORIDE 10 MEQ TABLET PO SCH (10:21)
[2017-12-28] MEDS: INSULIN GLARGINE 100 UNIT/ML SUBCUT SCH (10:22)
[2017-12-28] MEDS: SPIRONOLACTONE 25 MG TABLET PO SCH ×2 (10:33→22:55)
[2017-12-28] MEDS: INSULIN REGULAR 100 UNIT/ML SUBCUT SCH ×4 (10:34→22:56)
[2017-12-28] MEDS ORDERED: ALTEPLASE 5 MG in SYRINGE 1 EACH INTRAPLEUR ONE (14:50)
[2017-12-28] MEDS: ERTAPENEM 500 MG in SODIUM CHLORIDE 0.9% 100 ML IV SCH (16:07)
[2017-12-28] MEDS: ACETAMINOPHEN 325 MG TABLET PO PRN (20:02)
[2017-12-29] MEDS: METOCLOPRAMIDE 10 MG/2 ML VIAL IV SCH ×4 (01:20→18:04)
[2017-12-29] MEDS: FUROSEMIDE 40 MG/4 ML VIAL IV SCH ×3 (01:20→18:04)
[2017-12-29] MEDS: LEVOTHYROXINE 112 MCG TABLET PO SCH (06:38)
[2017-12-29 07:35] LABS: Basophils % 0.4 % (0.0-0.8); Eosinophils # 0.3 10*3/uL (0.0-0.87); Eosinophils % 4.2 % (0.00-10.9); Hemoglobin 7.9 GM/DL (12.0-16.0); Immature Granulocytes % 1.5 %; Immature Granulocytes Absolute 0.11 #; Lymphocytes # 1.6 10*3/uL (1.4-4.0); Lymphocytes % 21.8 % (21.3-54.2); Mean Corpuscular HGB Conc 32.9 GM/DL (32-36); Mean Corpuscular Hemoglobin 34 PG (27-34); Mean Corpuscular Volume 104.3 FL (87-102); Mean Platelet Volume 10.3 FL (9.6-12.0); Monocytes # 0.9 10*3/uL (0.11-0.8); Monocytes % 13.1 % (1.7-12.7); Neutrophils # 4.2 10*3/uL (1.4-7.4); Platelet Count 66 T/CUMM (130-400); Red Cell Distribution Width 20.2 % (9.3-17.3); White Blood Count 7.2 T/CUMM (4-12)
[2017-12-29 08:03] LABS: Band Neutrophils 1 % (0-10); Eosinophils 6 % (0-10); Hypochromasia 1+; Lymphocytes 18 % (20-55); Ovalocytes Slight; Platelet Estimate Decreased; Segmented Neutrophils 65 % (50-85); Total Cells Counted 100
[2017-12-29 08:05] LABS: Albumin 1.3 G/DL (3.4-5.0); Bilirubin,Total 3.2 MG/DL (0.2-1.0); Calcium 7.1 MG/DL (8.5-10.1); Osmolality,Calculated 284.8 MOS/KG (273-304); Potassium 3.8 MMOL/L (3.5-5.1); Total Protein 5.1 G/DL (6.4-8.3)
[2017-12-29] MEDS: INSULIN REGULAR 100 UNIT/ML SUBCUT SCH ×4 (08:37→22:26)
[2017-12-29] MEDS: LACTULOSE 20 GM/30 ML UDCUP PO SCH ×3 (09:49→22:26)
[2017-12-29] MEDS: AMOXICILLIN 500 MG CAPSULE PO SCH ×2 (09:49→22:25)
[2017-12-29] MEDS: SPIRONOLACTONE 25 MG TABLET PO SCH ×2 (09:49→22:25)
[2017-12-29] MEDS: INSULIN GLARGINE 100 UNIT/ML SUBCUT SCH (09:49)
[2017-12-29] MEDS: CLARITHROMYCIN 500 MG TABLET PO SCH ×2 (09:49→22:25)
[2017-12-29] MEDS: PANTOPRAZOLE 40 MG TABLET PO SCH ×2 (09:49→22:25)
[2017-12-29] MEDS: ZINC OXIDE PASTE 113 GM TUBE TOP SCH ×2 (10:04→22:26)
[2017-12-29] MEDS: ERTAPENEM 500 MG in SODIUM CHLORIDE 0.9% 100 ML IV SCH (16:37)
[2017-12-29] MEDS: cefTRIAXone 1,000 MG in SYRINGE 1 EACH IV SCH (17:54)
[2017-12-29] MEDS: ACETAMINOPHEN 325 MG TABLET PO PRN (22:24)
[2017-12-29] MEDS: LINEZOLID 600 MG TABLET PO SCH (22:25)
[2017-12-30] MEDS: FUROSEMIDE 40 MG/4 ML VIAL IV SCH ×3 (02:45→17:10)
[2017-12-30] MEDS: METOCLOPRAMIDE 10 MG/2 ML VIAL IV SCH ×4 (02:45→17:10)
[2017-12-30] MEDS: ACETAMINOPHEN 325 MG TABLET PO PRN (05:12)
[2017-12-30] MEDS: LEVOTHYROXINE 112 MCG TABLET PO SCH (07:49)
[2017-12-30 08:32] LABS: Basophils % 0.2 % (0.0-0.8); Eosinophils # 0.3 10*3/uL (0.0-0.87); Eosinophils % 2.5 % (0.00-10.9); Hematocrit 22.6 VOL% (35.7-47.0); Hemoglobin 7.7 GM/DL (12.0-16.0); Immature Granulocytes % 1.5 %; Immature Granulocytes Absolute 0.17 #; Lymphocytes # 0.5 10*3/uL (1.4-4.0); Lymphocytes % 4.3 % (21.3-54.2); Mean Corpuscular HGB Conc 34.1 GM/DL (32-36); Mean Corpuscular Hemoglobin 35 PG (27-34); Mean Corpuscular Volume 101.8 FL (87-102); Mean Platelet Volume 10.1 FL (9.6-12.0); Monocytes # 0.8 10*3/uL (0.11-0.8); Monocytes % 7.2 % (1.7-12.7); Neutrophils # 9.9 10*3/uL (1.4-7.4); Neutrophils % 84.3 % (38.7-73.9); Platelet Count 93 T/CUMM (130-400); Red Blood Count 2.22 MC/CUMM (3.8-5.5); Red Cell Distribution Width 20.1 % (9.3-17.3); White Blood Count 11.7 T/CUMM (4-12)
[2017-12-30] MEDS: INSULIN REGULAR 100 UNIT/ML SUBCUT SCH ×4 (08:54→20:38)
[2017-12-30 09:04] LABS: Band Neutrophils 26 % (0-10); Eosinophils 5 % (0-10); Lymphocytes 1 % (20-55); Platelet Estimate Adequate; Segmented Neutrophils 64 % (50-85); Total Cells Counted 100
[2017-12-30 09:05] LABS: Anisocytosis 1+; Macrocytosis 1+; Polychromasia Slight
[2017-12-30 09:14] LABS: Albumin 1.3 G/DL (3.4-5.0); Bilirubin,Total 2.6 MG/DL (0.2-1.0); Osmolality,Calculated 278.4 MOS/KG (273-304); Potassium 3.7 MMOL/L (3.5-5.1); Total Protein 5.2 G/DL (6.4-8.3)
[2017-12-30] MEDS: CLARITHROMYCIN 500 MG TABLET PO SCH ×2 (10:03→20:37)
[2017-12-30] MEDS: PANTOPRAZOLE 40 MG TABLET PO SCH ×2 (10:03→20:27)
[2017-12-30] MEDS: LINEZOLID 600 MG TABLET PO SCH ×2 (10:04→20:27)
[2017-12-30] MEDS: SPIRONOLACTONE 25 MG TABLET PO SCH ×2 (10:04→20:24)
[2017-12-30] MEDS: INSULIN GLARGINE 100 UNIT/ML SUBCUT SCH (10:05)
[2017-12-30] MEDS: LACTULOSE 20 GM/30 ML UDCUP PO SCH ×3 (10:05→20:24)
[2017-12-30] MEDS: ZINC OXIDE PASTE 113 GM TUBE TOP SCH ×2 (10:06→20:29)
[2017-12-30] MEDS: AMOXICILLIN 500 MG CAPSULE PO SCH ×2 (10:18→20:27)
[2017-12-30] MEDS ORDERED: SODIUM CHLORIDE 0.9% 1,000 ML IV PRN (14:10)
[2017-12-30] MEDS: MIDODRINE 5 MG TABLET PO SCH ×2 (15:10→20:27)
[2017-12-30] MEDS: cefTRIAXone 1,000 MG in SYRINGE 1 EACH IV SCH (18:05)
[2017-12-30] MEDS ORDERED: ALBUMIN 25% 25 GM in PREMIX 1 EACH IV SCH (21:00)
[2017-12-30] MEDS: ALBUMIN 25% 25 GM in PREMIX 1 EACH IV SCH (21:28)
[2017-12-30] MEDS ORDERED: ALBUMIN 5% 12.5 GM in PREMIX 1 EACH IV ONE (23:20)
[2017-12-30] MEDS ORDERED: SODIUM CHLORIDE 0.9% 500 ML IV ONE (23:20)
[2017-12-30 23:54] LABS: Basophils % 0.3 % (0.0-0.8); Eosinophils # 0.5 10*3/uL (0.0-0.87); Eosinophils % 4.6 % (0.00-10.9); Hematocrit 24.7 VOL% (35.7-47.0); Hemoglobin 8.5 GM/DL (12.0-16.0); Immature Granulocytes % 1.1 %; Immature Granulocytes Absolute 0.12 #; Lymphocytes # 1.2 10*3/uL (1.4-4.0); Lymphocytes % 11.6 % (21.3-54.2); Mean Corpuscular HGB Conc 34.4 GM/DL (32-36); Mean Corpuscular Hemoglobin 33 PG (27-34); Mean Platelet Volume 10.1 FL (9.6-12.0); Monocytes # 0.9 10*3/uL (0.11-0.8); Monocytes % 8.8 % (1.7-12.7); Neutrophils # 7.7 10*3/uL (1.4-7.4); Neutrophils % 73.6 % (38.7-73.9); Platelet Count 57 T/CUMM (130-400); Red Cell Distribution Width 21.4 % (9.3-17.3); White Blood Count 10.5 T/CUMM (4-12)
[2017-12-31] LABS: Albumin 1.6 G/DL (3.4-5.0); Bilirubin,Total 2.2 MG/DL (0.2-1.0); Calcium 7.4 MG/DL (8.5-10.1); Osmolality,Calculated 282.2 MOS/KG (273-304); Potassium 4.1 MMOL/L (3.5-5.1); Total Protein 5.3 G/DL (6.4-8.3)
[2017-12-31] MEDS ORDERED: DOPamine 800 MG/250 ML PREMIX IV PRN (00:28)
[2017-12-31] MEDS: METOCLOPRAMIDE 10 MG/2 ML VIAL IV SCH ×4 (01:21→18:11)
[2017-12-31 02:20] LABS: Albumin 2.7 G/DL (3.4-5.0); Bilirubin,Total 3.4 MG/DL (0.2-1.0); Calcium 7.8 MG/DL (8.5-10.1); Osmolality,Calculated 279.4 MOS/KG (273-304); Total Protein 6.9 G/DL (6.4-8.3)
[2017-12-31 02:57] LABS: Troponin I Only < 0.015 NG/ML (0.00-0.045)
[2017-12-31] MEDS: LEVOTHYROXINE 112 MCG TABLET PO SCH (05:41)
[2017-12-31] MEDS: ALBUMIN 25% 25 GM in PREMIX 1 EACH IV SCH ×3 (05:41→22:06)
[2017-12-31] MEDS: INSULIN REGULAR 100 UNIT/ML SUBCUT SCH ×4 (07:30→21:58)
[2017-12-31] MEDS ORDERED: SODIUM CHLORIDE 0.9% 1,000 ML IV PRN (09:14)
[2017-12-31] MEDS ORDERED: ALBUMIN 25% 25 GM in PREMIX 1 EACH IV ONE (09:15)
[2017-12-31] MEDS: INSULIN GLARGINE 100 UNIT/ML SUBCUT SCH (09:59)
[2017-12-31] MEDS: AMOXICILLIN 500 MG CAPSULE PO SCH ×2 (10:00→21:55)
[2017-12-31] MEDS: LACTULOSE 20 GM/30 ML UDCUP PO SCH ×3 (10:00→21:55)
[2017-12-31] MEDS: FUROSEMIDE 20 MG TABLET PO SCH ×2 (10:00→19:26)
[2017-12-31] MEDS: CLARITHROMYCIN 500 MG TABLET PO SCH ×2 (10:01→21:55)
[2017-12-31] MEDS: LINEZOLID 600 MG TABLET PO SCH ×2 (10:01→21:56)
[2017-12-31] MEDS: SPIRONOLACTONE 25 MG TABLET PO SCH (10:02)
[2017-12-31] MEDS: MIDODRINE 5 MG TABLET PO SCH ×3 (10:03→21:56)
[2017-12-31] MEDS: PANTOPRAZOLE 40 MG TABLET PO SCH ×2 (10:04→21:57)
[2017-12-31] MEDS: ZINC OXIDE PASTE 113 GM TUBE TOP SCH ×2 (12:45→22:07)
[2017-12-31] MEDS: NOREPINEPHRINE 16 MG in SODIUM CHLORIDE 0.9% 234 ML IV PRN (15:58)
[2017-12-31] MEDS: cefTRIAXone 1,000 MG in SYRINGE 1 EACH IV SCH (18:11)
[2018-01-01] MEDS: METOCLOPRAMIDE 10 MG/2 ML VIAL IV SCH ×4 (00:32→18:00)
[2018-01-01 04:54] LABS: Basophils # 0.1 10*3/uL (0.0-0.2); Eosinophils # 0.7 10*3/uL (0.0-0.87); Hematocrit 32.9 VOL% (35.7-47.0); Lymphocytes # 1.6 10*3/uL (1.4-4.0); Lymphocytes % 15.9 % (21.3-54.2); Mean Corpuscular Hemoglobin 32 PG (27-34); Mean Corpuscular Volume 92.2 FL (87-102); Mean Platelet Volume 9.7 FL (9.6-12.0); Monocytes # 1.1 10*3/uL (0.11-0.8); Monocytes % 11.3 % (1.7-12.7); Neutrophils # 6.3 10*3/uL (1.4-7.4); Neutrophils % 63.8 % (38.7-73.9); Platelet Count 124 T/CUMM (130-400); Red Blood Count 3.57 MC/CUMM (3.8-5.5); White Blood Count 9.9 T/CUMM (4-12)
[2018-01-01 05:04] LABS: Hemoglobin 11.5 GM/DL (12.0-16.0)
[2018-01-01 05:36] LABS: Albumin 2.7 G/DL (3.4-5.0); Bilirubin,Total 4.3 MG/DL (0.2-1.0); Osmolality,Calculated 288.7 MOS/KG (273-304); Potassium 3.8 MMOL/L (3.5-5.1); Total Protein 6.1 G/DL (6.4-8.3)
[2018-01-01 05:54] LABS: Troponin I Only 0.316 NG/ML (0.00-0.045)
[2018-01-01] MEDS: ALBUMIN 25% 25 GM in PREMIX 1 EACH IV SCH ×4 (06:25→20:54)
[2018-01-01] MEDS: LEVOTHYROXINE 112 MCG TABLET PO SCH (06:31)
[2018-01-01] MEDS: ZINC OXIDE PASTE 113 GM TUBE TOP SCH ×3 (06:45→20:47)
[2018-01-01] MEDS ORDERED: FUROSEMIDE 40 MG TABLET PO SCH (08:00)
[2018-01-01] MEDS: INSULIN GLARGINE 100 UNIT/ML SUBCUT SCH (08:41)
[2018-01-01] MEDS: AMOXICILLIN 500 MG CAPSULE PO SCH ×2 (08:41→20:45)
[2018-01-01] MEDS: LACTULOSE 20 GM/30 ML UDCUP PO SCH ×2 (08:42→20:29)
[2018-01-01] MEDS: LINEZOLID 600 MG TABLET PO SCH ×2 (08:42→20:46)
[2018-01-01] MEDS: CLARITHROMYCIN 500 MG TABLET PO SCH ×2 (08:42→20:46)
[2018-01-01] MEDS: PANTOPRAZOLE 40 MG TABLET PO SCH ×2 (08:42→20:46)
[2018-01-01] MEDS: MIDODRINE 5 MG TABLET PO SCH ×3 (08:43→20:46)
[2018-01-01] MEDS: INSULIN REGULAR 100 UNIT/ML SUBCUT SCH ×4 (09:07→20:46)
[2018-01-01] MEDS: cefTRIAXone 1,000 MG in SYRINGE 1 EACH IV SCH (17:50)
[2018-01-02] MEDS: METOCLOPRAMIDE 10 MG/2 ML VIAL IV SCH ×4 (00:04→17:50)
[2018-01-02 03:28] LABS: Basophils # 0.1 10*3/uL (0.0-0.2); Basophils % 0.7 % (0.0-0.8); Eosinophils # 0.5 10*3/uL (0.0-0.87); Eosinophils % 6.8 % (0.00-10.9); Hematocrit 30.4 VOL% (35.7-47.0); Hemoglobin 10.3 GM/DL (12.0-16.0); Immature Granulocytes % 0.6 %; Immature Granulocytes Absolute 0.04 #; Lymphocytes # 1.4 10*3/uL (1.4-4.0); Lymphocytes % 20.7 % (21.3-54.2); Mean Corpuscular HGB Conc 33.9 GM/DL (32-36); Mean Corpuscular Hemoglobin 32 PG (27-34); Mean Corpuscular Volume 94.1 FL (87-102); Mean Platelet Volume 9.3 FL (9.6-12.0); Monocytes # 0.9 10*3/uL (0.11-0.8); Monocytes % 12.8 % (1.7-12.7); Neutrophils # 4.1 10*3/uL (1.4-7.4); Neutrophils % 58.4 % (38.7-73.9); Platelet Count 102 T/CUMM (130-400); Red Blood Count 3.23 MC/CUMM (3.8-5.5); Red Cell Distribution Width 20.5 % (9.3-17.3); White Blood Count 6.9 T/CUMM (4-12)
[2018-01-02 03:52] LABS: Alanine Aminotransferase 27 U/L (13-56); Albumin 2.6 G/DL (3.4-5.0); Alkaline Phosphatase 249 U/L (45-117); Aspartate Amino Transferase 75 U/L (0-37); Bilirubin,Indirect 1.5 MG/DL (0.0-1.0)
[2018-01-02 03:55] LABS: Ammonia < 10 UMOL/L (11-32); Calcium 7.7 MG/DL (8.5-10.1); Osmolality,Calculated 288.7 MOS/KG (273-304); Potassium 3.6 MMOL/L (3.5-5.1)
[2018-01-02 04:48] LABS: Troponin I Only 0.086 NG/ML (0.00-0.045)
[2018-01-02 05:03] LABS: INR 1.5; PT Patient Result 15.7 SECS
[2018-01-02] MEDS: ALBUMIN 25% 25 GM in PREMIX 1 EACH IV SCH ×3 (05:41→22:13)
[2018-01-02] MEDS: LEVOTHYROXINE 112 MCG TABLET PO SCH (05:42)
[2018-01-02] MEDS: NOREPINEPHRINE 16 MG in SODIUM CHLORIDE 0.9% 234 ML IV PRN (05:43)
[2018-01-02] MEDS ORDERED: CALCIUM GLUCONATE 1,000 MG in SODIUM CHLORIDE 0.9% 100 ML IV ONE (06:32)
[2018-01-02] MEDS: CLARITHROMYCIN 500 MG TABLET PO SCH (08:13)
[2018-01-02] MEDS: ZINC OXIDE PASTE 113 GM TUBE TOP SCH ×2 (08:13→22:14)
[2018-01-02] MEDS: PANTOPRAZOLE 40 MG TABLET PO SCH ×2 (08:13→22:13)
[2018-01-02] MEDS: MIDODRINE 5 MG TABLET PO SCH ×3 (08:13→22:12)
[2018-01-02] MEDS: LINEZOLID 600 MG TABLET PO SCH ×2 (08:13→22:13)
[2018-01-02] MEDS: AMOXICILLIN 500 MG CAPSULE PO SCH (08:13)
[2018-01-02] MEDS: INSULIN GLARGINE 100 UNIT/ML SUBCUT SCH (08:14)
[2018-01-02] MEDS: LACTULOSE 20 GM/30 ML UDCUP PO SCH ×2 (09:23→22:13)
[2018-01-02] MEDS: INSULIN REGULAR 100 UNIT/ML SUBCUT SCH ×4 (09:23→22:13)
[2018-01-02] MEDS: cefTRIAXone 1,000 MG in SYRINGE 1 EACH IV SCH (17:51)
[2018-01-03] MEDS: METOCLOPRAMIDE 10 MG/2 ML VIAL IV SCH ×5 (00:38→23:27)
[2018-01-03 03:57] LABS: Basophils # 0.1 10*3/uL (0.0-0.2); Eosinophils # 0.4 10*3/uL (0.0-0.87); Eosinophils % 5.8 % (0.00-10.9); Hematocrit 31.3 VOL% (35.7-47.0); Hemoglobin 10.5 GM/DL (12.0-16.0); Immature Granulocytes % 0.7 %; Immature Granulocytes Absolute 0.05 #; Lymphocytes # 1.5 10*3/uL (1.4-4.0); Lymphocytes % 21.6 % (21.3-54.2); Mean Corpuscular HGB Conc 33.5 GM/DL (32-36); Mean Corpuscular Hemoglobin 32 PG (27-34); Mean Corpuscular Volume 95.7 FL (87-102); Mean Platelet Volume 9.3 FL (9.6-12.0); Monocytes # 0.8 10*3/uL (0.11-0.8); Monocytes % 11.9 % (1.7-12.7); Neutrophils # 4.2 10*3/uL (1.4-7.4); Platelet Count 105 T/CUMM (130-400); Red Blood Count 3.27 MC/CUMM (3.8-5.5); Red Cell Distribution Width 20.6 % (9.3-17.3); White Blood Count 7.1 T/CUMM (4-12)
[2018-01-03 04:20] LABS: Osmolality,Calculated 283.8 MOS/KG (273-304); Potassium 3.8 MMOL/L (3.5-5.1)
[2018-01-03] MEDS: ALBUMIN 25% 25 GM in PREMIX 1 EACH IV SCH (04:43)
[2018-01-03 04:58] LABS: Hypochromasia 1+; Platelet Estimate Decreased
[2018-01-03] MEDS: LEVOTHYROXINE 112 MCG TABLET PO SCH (06:37)
[2018-01-03] MEDS: LACTULOSE 20 GM/30 ML UDCUP PO SCH ×2 (09:17→21:17)
[2018-01-03] MEDS: MIDODRINE 5 MG TABLET PO SCH ×3 (09:17→21:17)
[2018-01-03] MEDS: LINEZOLID 600 MG TABLET PO SCH ×2 (09:17→21:17)
[2018-01-03] MEDS: PANTOPRAZOLE 40 MG TABLET PO SCH ×2 (09:17→21:18)
[2018-01-03] MEDS: INSULIN GLARGINE 100 UNIT/ML SUBCUT SCH (09:22)
[2018-01-03] MEDS: INSULIN REGULAR 100 UNIT/ML SUBCUT SCH ×4 (11:40→21:19)
[2018-01-03] MEDS: ZINC OXIDE PASTE 113 GM TUBE TOP SCH ×2 (11:42→21:19)
[2018-01-03] MEDS: cefTRIAXone 1,000 MG in SYRINGE 1 EACH IV SCH (18:15)
[2018-01-04 04:53] LABS: Basophils % 0.7 % (0.0-0.8); Eosinophils # 0.2 10*3/uL (0.0-0.87); Eosinophils % 4.3 % (0.00-10.9); Hematocrit 28.8 VOL% (35.7-47.0); Hemoglobin 9.9 GM/DL (12.0-16.0); Immature Granulocytes % 0.5 %; Immature Granulocytes Absolute 0.03 #; Lymphocytes # 1.3 10*3/uL (1.4-4.0); Lymphocytes % 23.8 % (21.3-54.2); Mean Corpuscular HGB Conc 34.4 GM/DL (32-36); Mean Corpuscular Hemoglobin 32 PG (27-34); Mean Corpuscular Volume 93.8 FL (87-102); Mean Platelet Volume 9.1 FL (9.6-12.0); Monocytes # 0.6 10*3/uL (0.11-0.8); Monocytes % 10.9 % (1.7-12.7); Neutrophils # 3.4 10*3/uL (1.4-7.4); Neutrophils % 59.8 % (38.7-73.9); Red Blood Count 3.07 MC/CUMM (3.8-5.5); Red Cell Distribution Width 20.7 % (9.3-17.3); White Blood Count 5.6 T/CUMM (4-12)
[2018-01-04 05:02] LABS: Platelet Count 81 T/CUMM (130-400)
[2018-01-04 05:20] LABS: Albumin 2.2 G/DL (3.4-5.0); Bilirubin,Total 4.4 MG/DL (0.2-1.0); Osmolality,Calculated 283.7 MOS/KG (273-304); Total Protein 5.4 G/DL (6.4-8.3)
[2018-01-04] MEDS: METOCLOPRAMIDE 10 MG/2 ML VIAL IV SCH ×4 (05:23→23:50)
[2018-01-04 05:30] LABS: Albumin 2.2 G/DL (3.4-5.0); Bilirubin,Direct 2.02 MG/DL (0.0-0.20); Total Protein 5.5 G/DL (6.4-8.3)
[2018-01-04 05:31] LABS: Hypochromasia 1+
[2018-01-04 05:32] LABS: Microcytosis 1+; Platelet Estimate Decreased
[2018-01-04] MEDS: LEVOTHYROXINE 112 MCG TABLET PO SCH (05:45)
[2018-01-04] MEDS: INSULIN REGULAR 100 UNIT/ML SUBCUT SCH ×4 (08:11→20:57)
[2018-01-04] MEDS: PANTOPRAZOLE 40 MG TABLET PO SCH ×2 (09:25→20:56)
[2018-01-04] MEDS: INSULIN GLARGINE 100 UNIT/ML SUBCUT SCH (09:25)
[2018-01-04] MEDS: LINEZOLID 600 MG TABLET PO SCH ×2 (09:25→20:55)
[2018-01-04] MEDS: LACTULOSE 20 GM/30 ML UDCUP PO SCH ×2 (09:25→20:57)
[2018-01-04] MEDS: MIDODRINE 5 MG TABLET PO SCH ×3 (09:25→20:56)
[2018-01-04] MEDS: ZINC OXIDE PASTE 113 GM TUBE TOP SCH ×2 (09:33→20:58)
[2018-01-04] MEDS ORDERED: ZINC OXIDE PASTE 113 GM TUBE TOP PRN (10:23)
[2018-01-04] MEDS ORDERED: fentaNYL 100 MCG/2 ML VIAL IV ONE (13:43)
[2018-01-04] MEDS ORDERED: MIDAZOLAM 2 MG/2 ML VIAL IV ONE (13:43)
[2018-01-04] MEDS ORDERED: DIAZEPAM 5 MG TABLET PO ONE (13:43)
[2018-01-04] MEDS: cefTRIAXone 1,000 MG in SYRINGE 1 EACH IV SCH (18:11)
[2018-01-04] MEDS: SPIRONOLACTONE 25 MG TABLET PO SCH (20:55)
[2018-01-05] MEDS: LEVOTHYROXINE 112 MCG TABLET PO SCH (05:35)
[2018-01-05] MEDS: METOCLOPRAMIDE 10 MG/2 ML VIAL IV SCH ×3 (05:38→19:09)
[2018-01-05 07:52] LABS: Basophils # 0.1 10*3/uL (0.0-0.2); Basophils % 0.9 % (0.0-0.8); Eosinophils # 0.3 10*3/uL (0.0-0.87); Eosinophils % 4.9 % (0.00-10.9); Hematocrit 28.8 VOL% (35.7-47.0); Hemoglobin 9.4 GM/DL (12.0-16.0); Immature Granulocytes % 0.4 %; Immature Granulocytes Absolute 0.02 #; Lymphocytes # 1.4 10*3/uL (1.4-4.0); Lymphocytes % 24.9 % (21.3-54.2); Mean Corpuscular HGB Conc 32.6 GM/DL (32-36); Mean Corpuscular Hemoglobin 32 PG (27-34); Mean Corpuscular Volume 97.3 FL (87-102); Mean Platelet Volume 9.4 FL (9.6-12.0); Monocytes # 0.5 10*3/uL (0.11-0.8); Monocytes % 8.4 % (1.7-12.7); Neutrophils # 3.3 10*3/uL (1.4-7.4); Neutrophils % 60.5 % (38.7-73.9); Red Blood Count 2.96 MC/CUMM (3.8-5.5); Red Cell Distribution Width 20.6 % (9.3-17.3); White Blood Count 5.5 T/CUMM (4-12)
[2018-01-05 07:53] LABS: Platelet Count 69 T/CUMM (130-400)
[2018-01-05 07:57] LABS: INR 1.4; PT Patient Result 14.7 SECS
[2018-01-05] MEDS ORDERED: MIDAZOLAM 2 MG/2 ML VIAL IV ONE ×2 (08:00→09:00)
[2018-01-05] MEDS ORDERED: fentaNYL 100 MCG/2 ML VIAL IV ONE (08:00)
[2018-01-05 08:10] LABS: Partial Thromboplastin Time 46.4 SECS (0-40)
[2018-01-05 08:17] LABS: Hypochromasia Slight; Platelet Estimate Decreased; Target Cells Few
[2018-01-05 08:18] LABS: Microcytosis Slight
[2018-01-05] MEDS ORDERED: MIDAZOLAM 2 MG/2 ML VIAL ONE (09:54)
[2018-01-05] MEDS ORDERED: fentaNYL 100 MCG/2 ML VIAL ONE (09:54)
[2018-01-05] MEDS: INSULIN REGULAR 100 UNIT/ML SUBCUT SCH ×4 (09:55→22:15)
[2018-01-05] MEDS: ZINC OXIDE PASTE 113 GM TUBE TOP SCH ×2 (11:46→22:14)
[2018-01-05] MEDS: LACTULOSE 20 GM/30 ML UDCUP PO SCH ×2 (11:46→22:12)
[2018-01-05] MEDS: MIDODRINE 5 MG TABLET PO SCH ×3 (11:47→22:14)
[2018-01-05] MEDS: SPIRONOLACTONE 25 MG TABLET PO SCH ×2 (12:59→22:12)
[2018-01-05] MEDS: PANTOPRAZOLE 40 MG TABLET PO SCH ×2 (12:59→22:12)
[2018-01-05] MEDS: INSULIN GLARGINE 100 UNIT/ML SUBCUT SCH (12:59)
[2018-01-05] MEDS: LINEZOLID 600 MG TABLET PO SCH ×2 (13:00→22:14)
[2018-01-05] MEDS: PHYTONADIONE 5 MG/5 ML ORAL.SYR PO SCH ×2 (13:00→19:09)
[2018-01-05] MEDS ORDERED: GLUCAGON 1 MG VIAL IM PRN (14:13)
[2018-01-05] MEDS ORDERED: DEXTROSE 50% 25 GM/50 ML VIAL IV PRN (14:13)
[2018-01-05] MEDS: cefTRIAXone 1,000 MG in SYRINGE 1 EACH IV SCH (19:09)
[2018-01-06] MEDS: METOCLOPRAMIDE 10 MG/2 ML VIAL IV SCH ×4 (00:45→17:12)
[2018-01-06] MEDS: LEVOTHYROXINE 112 MCG TABLET PO SCH (06:08)
[2018-01-06 07:49] LABS: Basophils # 0.1 10*3/uL (0.0-0.2); Eosinophils # 0.2 10*3/uL (0.0-0.87); Eosinophils % 4.7 % (0.00-10.9); Hematocrit 27.3 VOL% (35.7-47.0); Hemoglobin 9.1 GM/DL (12.0-16.0); Immature Granulocytes % 0.6 %; Immature Granulocytes Absolute 0.03 #; Lymphocytes # 1.3 10*3/uL (1.4-4.0); Lymphocytes % 26.3 % (21.3-54.2); Mean Corpuscular HGB Conc 33.3 GM/DL (32-36); Mean Corpuscular Hemoglobin 32 PG (27-34); Mean Corpuscular Volume 96.8 FL (87-102); Monocytes # 0.4 10*3/uL (0.11-0.8); Monocytes % 7.9 % (1.7-12.7); Neutrophils % 59.5 % (38.7-73.9); Platelet Count 57 T/CUMM (130-400); Red Blood Count 2.82 MC/CUMM (3.8-5.5); Red Cell Distribution Width 20.5 % (9.3-17.3); White Blood Count 5.1 T/CUMM (4-12)
[2018-01-06 07:59] LABS: INR 1.4; PT Patient Result 14.1 SECS
[2018-01-06 08:05] LABS: Partial Thromboplastin Time 45.8 SECS (0-40)
[2018-01-06 08:11] LABS: Hypochromasia Slight
[2018-01-06 08:12] LABS: Anisocytosis 1+; Microcytosis 1+; Target Cells Slight
[2018-01-06 08:13] LABS: Platelet Estimate Decreased
[2018-01-06 08:21] LABS: Calcium 7.9 MG/DL (8.5-10.1); Potassium 4.3 MMOL/L (3.5-5.1)
[2018-01-06] MEDS: PHYTONADIONE 5 MG/5 ML ORAL.SYR PO SCH ×3 (08:45→15:47)
[2018-01-06] MEDS: INSULIN GLARGINE 100 UNIT/ML SUBCUT SCH (08:47)
[2018-01-06] MEDS: LACTULOSE 20 GM/30 ML UDCUP PO SCH ×2 (08:47→21:43)
[2018-01-06] MEDS: LINEZOLID 600 MG TABLET PO SCH ×2 (08:47→21:42)
[2018-01-06] MEDS: SPIRONOLACTONE 25 MG TABLET PO SCH ×2 (08:47→21:43)
[2018-01-06] MEDS: MIDODRINE 5 MG TABLET PO SCH ×3 (08:47→21:42)
[2018-01-06] MEDS: INSULIN REGULAR 100 UNIT/ML SUBCUT SCH ×4 (08:48→21:44)
[2018-01-06] MEDS: PANTOPRAZOLE 40 MG TABLET PO SCH ×2 (08:53→21:43)
[2018-01-06] MEDS: ZINC OXIDE PASTE 113 GM TUBE TOP SCH ×2 (10:40→21:44)
[2018-01-06] MEDS: cefTRIAXone 1,000 MG in SYRINGE 1 EACH IV SCH (17:12)
[2018-01-07] MEDS: METOCLOPRAMIDE 10 MG/2 ML VIAL IV SCH ×5 (01:12→23:17)
[2018-01-07] MEDS: LEVOTHYROXINE 112 MCG TABLET PO SCH (06:18)
[2018-01-07] MEDS: INSULIN GLARGINE 100 UNIT/ML SUBCUT SCH (08:23)
[2018-01-07] MEDS: MIDODRINE 5 MG TABLET PO SCH ×3 (08:24→21:06)
[2018-01-07] MEDS: PANTOPRAZOLE 40 MG TABLET PO SCH ×2 (08:25→21:09)
[2018-01-07] MEDS: SPIRONOLACTONE 25 MG TABLET PO SCH ×2 (08:25→21:05)
[2018-01-07] MEDS: LACTULOSE 20 GM/30 ML UDCUP PO SCH ×2 (08:26→21:06)
[2018-01-07] MEDS: LINEZOLID 600 MG TABLET PO SCH ×2 (08:26→21:05)
[2018-01-07] MEDS: ZINC OXIDE PASTE 113 GM TUBE TOP SCH ×2 (08:31→21:07)
[2018-01-07] MEDS: INSULIN REGULAR 100 UNIT/ML SUBCUT SCH ×4 (08:32→21:06)
[2018-01-07] MEDS ORDERED: PHYTONADIONE 5 MG/5 ML ORAL.SYR PO SCH (09:00)
[2018-01-07] MEDS: TORSEMIDE 20 MG TABLET PO SCH (10:47)
[2018-01-07] MEDS: ACETAMINOPHEN 325 MG TABLET PO PRN (12:37)
[2018-01-07] MEDS: cefTRIAXone 1,000 MG in SYRINGE 1 EACH IV SCH (17:33)
[2018-01-08] MEDS: METOCLOPRAMIDE 10 MG/2 ML VIAL IV SCH ×2 (05:46→12:45)
[2018-01-08] MEDS: LEVOTHYROXINE 112 MCG TABLET PO SCH (05:46)
[2018-01-08] MEDS: INSULIN REGULAR 100 UNIT/ML SUBCUT SCH ×2 (08:59→12:45)
[2018-01-08] MEDS: LINEZOLID 600 MG TABLET PO SCH (09:27)
[2018-01-08] MEDS: TORSEMIDE 20 MG TABLET PO SCH (09:27)
[2018-01-08] MEDS: MIDODRINE 5 MG TABLET PO SCH (09:27)
[2018-01-08] MEDS: SPIRONOLACTONE 25 MG TABLET PO SCH (09:28)
[2018-01-08] MEDS: LACTULOSE 20 GM/30 ML UDCUP PO SCH (09:28)
[2018-01-08] MEDS: INSULIN GLARGINE 100 UNIT/ML SUBCUT SCH (09:28)
[2018-01-08] MEDS: PANTOPRAZOLE 40 MG TABLET PO SCH (09:28)
[2018-01-08] MEDS: ZINC OXIDE PASTE 113 GM TUBE TOP SCH (09:29)
[2018-01-08 11:58] VITALS: BP 149/70
[2018-01-08] MEDS ORDERED: DESITIN 4OZ/NYSTATIN 15 GRAM MIXTURE PASTE TOP SCH (21:00)
== END 2018-01-08 15:00 | DRG 871 ==
LOC: EDBD → EDUNIT# → N.ED 06:58 → SUATTDRO 08:25 → N.EDINP 08:25 → N.3E 12:45 → N.ICU 12-21 05:27 → N.5E 12-25 10:54 → N.ICU 12-30 23:07 → N.5E 01-04 18:06
PROVIDERS: ADMIT Hospitalist; ATTEND Family Medicine
PROC: IRGDHTC (2017-12-25 10:05)

== ENCOUNTER 2018-03-26 12:04 | Inpatient (IN) ==
[2018-03-26] MEDS ORDERED: ALBUTEROL 2.5 MG/3 ML NEB RESP TX PRN (14:16)
[2018-03-26] MEDS ORDERED: ONDANSETRON 4 MG/2 ML VIAL IV PRN (14:16)
[2018-03-26] MEDS ORDERED: SODIUM CHLORIDE 0.9% 500 ML IV ONE (14:40)
[2018-03-26] MEDS ORDERED: SODIUM CHLORIDE 0.9% 2,000 ML IV ONE (14:40)
[2018-03-26] MEDS ORDERED: DEXTROSE 50% 25 GM/50 ML VIAL IV PRN (14:47)
[2018-03-26] MEDS ORDERED: GLUCAGON 1 MG VIAL IM PRN (14:47)
[2018-03-26] MEDS ORDERED: VANCOMYCIN INJ 1,250 MG in SODIUM CHLORIDE 0.9% 250 ML IV ONE (16:00)
[2018-03-26] MEDS: SODIUM CHLORIDE 0.9% 1,000 ML IV SCH (16:22)
[2018-03-26 16:33] LABS: INR 1.5; PT Patient Result 15.7 SECS
[2018-03-26 16:43] LABS: Pt O2 Delivery Device Room Air
[2018-03-26 16:44] LABS: ABG Base Excess -5.7 MMOL/L (-2.5-2.5); ABG HCO3 19.7 MMOL/L (20-26); ABG Oxygen Saturation 97.5 % (95-100); ABG PCO2 27.9 MM HG (35-48); ABG PH 7.418 (7.35-7.45); ABG PO2 94.5 MM HG (80-95); ABG TCO2 16.8 MMOL/L (23-27)
[2018-03-26 16:46] LABS: Calcium 8.1 MG/DL (8.5-10.1); Osmolality,Calculated 279.1 MOS/KG (273-304); Potassium 4.2 MMOL/L (3.5-5.1)
[2018-03-26 16:49] LABS: Ammonia 162 UMOL/L (11-32)
[2018-03-26 16:55] LABS: Lactic Acid 5.5 MMOL/L (0.4-2.0)
[2018-03-26] MEDS: INSULIN LISPRO 100 UNIT/ML SUBCUT SCH ×3 (17:22→23:13)
[2018-03-26 17:39] LABS: Apearance,Urine CLOUDY (Clear); Bacteria,Urine Many /HPF (Few); Blood, Urine Moderate mg/dL (Negative); Glucose,Urine (UA) Negative (Negative); Hyaline Casts,Urine 20 /LPF (0-3); Ketones,Urine Negative (Negative); Mucus,Urine Occasional /LPF (Occasional); Nitrite,Urine Negative (Negative); Protein,Urine 30 MG/DL; Squamous Epithelial Cell,Urine Occasional /HPF (0-10); Urine Color Amber (Yellow); Urine Specific Gravity 1.014 (1.001-1.035); WBC,Urine 218 /HPF (0-6)
[2018-03-26 17:40] LABS: Bilirubin,Urine Small mg/dL (Negative)
[2018-03-26] MEDS: LACTULOSE 20 GM/30 ML UDCUP PO SCH ×3 (18:35→23:13)
[2018-03-26] MEDS: MEROPENEM 1,000 MG in SODIUM CHLORIDE 0.9% 100 ML IV SCH ×2 (18:35→22:47)
[2018-03-26] MEDS: NOREPINEPHRINE 8 MG in SODIUM CHLORIDE 0.9% 242 ML IV PRN (18:35)
[2018-03-26] MEDS: PANTOPRAZOLE 40 MG VIAL IV SCH (18:35)
[2018-03-26] MEDS ORDERED: SODIUM CHLORIDE 0.9% 1,000 ML IV ONE (18:37)
[2018-03-26] MEDS ORDERED: VANCOMYCIN INJ 1,250 MG in SODIUM CHLORIDE 0.9% 250 ML IV PRN (21:00)
[2018-03-26] MEDS: ALBUMIN 25% 12.5 GM in PREMIX 1 EACH IV PRN (21:39)
[2018-03-27 03:13] LABS: ABG Base Excess -2.7 MMOL/L (-2.5-2.5); ABG HCO3 22.1 MMOL/L (20-26); ABG Oxygen Saturation 97.2 % (95-100); ABG PCO2 31.2 MM HG (35-48); ABG PH 7.435 (7.35-7.45); ABG PO2 86.6 MM HG (80-95); ABG TCO2 19.7 MMOL/L (23-27); Allen Test Positive; Pt O2 Delivery Device Room Air
[2018-03-27 03:35] LABS: Basophils # 0.1 10*3/uL (0.0-0.2); Basophils % 0.3 % (0.0-0.8); Eosinophils % 0.2 % (0.00-10.9); Hematocrit 22.8 VOL% (35.7-47.0); Hemoglobin 7.4 GM/DL (12.0-16.0); Immature Granulocytes % 1.8 %; Lymphocytes % 11.9 % (21.3-54.2); Mean Corpuscular HGB Conc 32.5 GM/DL (32-36); Mean Corpuscular Hemoglobin 40 PG (27-34); Mean Corpuscular Volume 122.6 FL (87-102); Mean Platelet Volume 9.5 FL (9.6-12.0); Monocytes # 1.3 10*3/uL (0.11-0.8); Monocytes % 7.6 % (1.7-12.7); Neutrophils % 78.2 % (38.7-73.9); Platelet Count 102 T/CUMM (130-400); Red Cell Distribution Width 17.2 % (9.3-17.3); White Blood Count 16.7 T/CUMM (4-12)
[2018-03-27 03:36] LABS: Red Blood Count 1.86 MC/CUMM (3.8-5.5)
[2018-03-27 03:41] LABS: INR 1.6; PT Patient Result 17.1 SECS
[2018-03-27 04:04] LABS: Albumin 1.7 G/DL (3.4-5.0); Bilirubin,Total 8.4 MG/DL (0.2-1.0); Calcium 8.1 MG/DL (8.5-10.1); Osmolality,Calculated 282.7 MOS/KG (273-304); Potassium 3.9 MMOL/L (3.5-5.1); Total Protein 6.7 G/DL (6.4-8.3)
[2018-03-27] MEDS: LACTULOSE 20 GM/30 ML UDCUP PO SCH ×5 (04:16→20:15)
[2018-03-27] MEDS: INSULIN LISPRO 100 UNIT/ML SUBCUT SCH ×5 (04:17→20:10)
[2018-03-27] MEDS: ALBUMIN 25% 12.5 GM in PREMIX 1 EACH IV PRN (04:39)
[2018-03-27 04:43] LABS: Platelet Estimate Adequate; Polychromasia 1+
[2018-03-27 04:44] LABS: Burr Cells Few; Hypochromasia Slight
[2018-03-27] MEDS: SODIUM CHLORIDE 0.9% 1,000 ML IV SCH ×2 (05:36→16:20)
[2018-03-27] MEDS: MEROPENEM 1,000 MG in SODIUM CHLORIDE 0.9% 100 ML IV SCH ×3 (06:00→23:24)
[2018-03-27] MEDS: NOREPINEPHRINE 8 MG in SODIUM CHLORIDE 0.9% 242 ML IV PRN (07:26)
[2018-03-27] MEDS: PANTOPRAZOLE 40 MG VIAL IV SCH (16:08)
[2018-03-27] MEDS: VANCOMYCIN INJ 1,250 MG in SODIUM CHLORIDE 0.9% 250 ML IV SCH (21:50)
[2018-03-28] MEDS: LACTULOSE 20 GM/30 ML UDCUP PO SCH ×5 (01:00→15:53)
[2018-03-28] MEDS: INSULIN LISPRO 100 UNIT/ML SUBCUT SCH ×6 (01:01→20:11)
[2018-03-28 05:00] LABS: Basophils % 0.6 % (0.0-0.8); Eosinophils # 0.1 10*3/uL (0.0-0.87); Eosinophils % 1.6 % (0.00-10.9); Hematocrit 21.9 VOL% (35.7-47.0); Immature Granulocytes % 2.2 %; Immature Granulocytes Absolute 0.11 #; Lymphocytes # 1.1 10*3/uL (1.4-4.0); Lymphocytes % 21.4 % (21.3-54.2); Mean Corpuscular Hemoglobin 39 PG (27-34); Mean Corpuscular Volume 122.3 FL (87-102); Mean Platelet Volume 9.5 FL (9.6-12.0); Monocytes # 0.5 10*3/uL (0.11-0.8); Monocytes % 10.3 % (1.7-12.7); NRBC # 0.02 10*3/uL; Neutrophils # 3.2 10*3/uL (1.4-7.4); Neutrophils % 63.9 % (38.7-73.9); Red Blood Count 1.79 MC/CUMM (3.8-5.5); Red Cell Distribution Width 17.6 % (9.3-17.3)
[2018-03-28 05:12] LABS: Platelet Count 74 T/CUMM (130-400)
[2018-03-28 05:25] LABS: Albumin 1.8 G/DL (3.4-5.0); Bilirubin,Total 7.5 MG/DL (0.2-1.0); Calcium 8.7 MG/DL (8.5-10.1); Osmolality,Calculated 294.6 MOS/KG (273-304); Potassium 3.6 MMOL/L (3.5-5.1); Total Protein 6.5 G/DL (6.4-8.3)
[2018-03-28] MEDS: MEROPENEM 1,000 MG in SODIUM CHLORIDE 0.9% 100 ML IV SCH ×2 (06:05→16:45)
[2018-03-28] MEDS: SODIUM CHLORIDE 0.9% 1,000 ML IV SCH ×3 (06:43→12:20)
[2018-03-28] MEDS: LACTATED RINGERS 1,000 ML IV SCH (12:25)
[2018-03-28] MEDS: PANTOPRAZOLE 40 MG VIAL IV SCH (15:51)
[2018-03-28] MEDS: VANCOMYCIN INJ 1,250 MG in SODIUM CHLORIDE 0.9% 250 ML IV SCH (20:12)
[2018-03-29] MEDS: LACTULOSE 20 GM/30 ML UDCUP PO SCH ×3 (00:08→16:28)
[2018-03-29] MEDS: MEROPENEM 1,000 MG in SODIUM CHLORIDE 0.9% 100 ML IV SCH ×3 (00:08→18:13)
[2018-03-29] MEDS: INSULIN LISPRO 100 UNIT/ML SUBCUT SCH ×7 (00:09→23:52)
[2018-03-29] MEDS: LACTATED RINGERS 1,000 ML IV SCH ×2 (05:22→16:47)
[2018-03-29 05:34] LABS: Eosinophils # 0.1 10*3/uL (0.0-0.87); Eosinophils % 1.7 % (0.00-10.9); Hematocrit 21.5 VOL% (35.7-47.0); Hemoglobin 6.6 GM/DL (12.0-16.0); Immature Granulocytes Absolute 0.08 #; Lymphocytes # 1.1 10*3/uL (1.4-4.0); Lymphocytes % 25.9 % (21.3-54.2); Mean Corpuscular HGB Conc 30.7 GM/DL (32-36); Mean Corpuscular Hemoglobin 40 PG (27-34); Mean Corpuscular Volume 128.7 FL (87-102); Monocytes # 0.4 10*3/uL (0.11-0.8); Monocytes % 9.9 % (1.7-12.7); Neutrophils # 2.4 10*3/uL (1.4-7.4); Neutrophils % 59.5 % (38.7-73.9); Red Blood Count 1.67 MC/CUMM (3.8-5.5); Red Cell Distribution Width 17.5 % (9.3-17.3); White Blood Count 4.1 T/CUMM (4-12)
[2018-03-29 05:38] LABS: Platelet Count 73 T/CUMM (130-400)
[2018-03-29 05:57] LABS: Albumin 1.6 G/DL (3.4-5.0); Bilirubin,Total 6.2 MG/DL (0.2-1.0); Calcium 8.3 MG/DL (8.5-10.1); Osmolality,Calculated 298.1 MOS/KG (273-304); Potassium 3.4 MMOL/L (3.5-5.1); Total Protein 5.9 G/DL (6.4-8.3)
[2018-03-29 06:14] LABS: Anisocytosis 2+; Platelet Estimate Decreased; Poikilocytosis 1+; Polychromasia 1+; Target Cells Few
[2018-03-29] MEDS ORDERED: SODIUM CHLORIDE 0.9% 1,000 ML IV PRN ×2 (06:36→06:38)
[2018-03-29] MEDS: ALBUMIN 25% 12.5 GM in PREMIX 1 EACH IV PRN (06:41)
[2018-03-29] MEDS: POTASSIUM CHLORIDE 20 MEQ TABLET PO SCH ×3 (14:33→22:22)
[2018-03-29] MEDS: PANTOPRAZOLE 40 MG VIAL IV SCH (14:34)
[2018-03-29] MEDS: VANCOMYCIN INJ 1,250 MG in SODIUM CHLORIDE 0.9% 250 ML IV SCH (22:22)
[2018-03-30] MEDS: LACTULOSE 20 GM/30 ML UDCUP PO SCH ×3 (00:07→20:48)
[2018-03-30] MEDS: INSULIN LISPRO 100 UNIT/ML SUBCUT SCH ×5 (03:35→20:48)
[2018-03-30 03:52] LABS: Basophils # 0.1 10*3/uL (0.0-0.2); Basophils % 1.2 % (0.0-0.8); Eosinophils # 0.1 10*3/uL (0.0-0.87); Eosinophils % 2.5 % (0.00-10.9); INR 1.7; Immature Granulocytes % 3.5 %; Immature Granulocytes Absolute 0.14 #; Lymphocytes # 1.1 10*3/uL (1.4-4.0); Lymphocytes % 27.8 % (21.3-54.2); Mean Corpuscular HGB Conc 31.3 GM/DL (32-36); Mean Corpuscular Hemoglobin 35 PG (27-34); Mean Corpuscular Volume 111.9 FL (87-102); Mean Platelet Volume 9.6 FL (9.6-12.0); Monocytes # 0.4 10*3/uL (0.11-0.8); Monocytes % 8.7 % (1.7-12.7); Neutrophils # 2.3 10*3/uL (1.4-7.4); Neutrophils % 56.3 % (38.7-73.9); PT Patient Result 17.6 SECS; Platelet Count 67 T/CUMM (130-400); Red Blood Count 2.68 MC/CUMM (3.8-5.5)
[2018-03-30 03:58] LABS: Hemoglobin 9.4 GM/DL (12.0-16.0)
[2018-03-30 04:16] LABS: Albumin 1.7 G/DL (3.4-5.0); Bilirubin,Total 8.4 MG/DL (0.2-1.0); Calcium 8.6 MG/DL (8.5-10.1); Osmolality,Calculated 288.8 MOS/KG (273-304); Potassium 4.1 MMOL/L (3.5-5.1)
[2018-03-30 04:52] LABS: Band Neutrophils 1 % (0-10); Eosinophils 1 % (0-10); Lymphocytes 18 % (20-55); Platelet Estimate Decreased; Segmented Neutrophils 75 % (50-85); Total Cells Counted 100
[2018-03-30 04:53] LABS: Hypochromasia 1+
[2018-03-30] MEDS: MEROPENEM 1,000 MG in SODIUM CHLORIDE 0.9% 100 ML IV SCH ×2 (05:09→18:12)
[2018-03-30] MEDS: LACTATED RINGERS 1,000 ML IV SCH (10:53)
[2018-03-30] MEDS: PANTOPRAZOLE 40 MG VIAL IV SCH (15:48)
[2018-03-30] MEDS: VANCOMYCIN INJ 1,250 MG in SODIUM CHLORIDE 0.9% 250 ML IV SCH (20:50)
[2018-03-31] MEDS: INSULIN LISPRO 100 UNIT/ML SUBCUT SCH ×6 (00:11→20:53)
[2018-03-31] MEDS: LACTATED RINGERS 1,000 ML IV SCH ×2 (02:15→09:31)
[2018-03-31 04:21] LABS: Basophils % 0.9 % (0.0-0.8); Eosinophils # 0.1 10*3/uL (0.0-0.87); Eosinophils % 2.2 % (0.00-10.9); Hematocrit 31.1 VOL% (35.7-47.0); Hemoglobin 10.1 GM/DL (12.0-16.0); Immature Granulocytes % 3.1 %; Immature Granulocytes Absolute 0.14 #; Lymphocytes # 1.2 10*3/uL (1.4-4.0); Lymphocytes % 26.9 % (21.3-54.2); Mean Corpuscular HGB Conc 32.5 GM/DL (32-36); Mean Corpuscular Hemoglobin 36 PG (27-34); Mean Corpuscular Volume 111.1 FL (87-102); Mean Platelet Volume 9.3 FL (9.6-12.0); Monocytes # 0.4 10*3/uL (0.11-0.8); Monocytes % 9.3 % (1.7-12.7); Neutrophils # 2.6 10*3/uL (1.4-7.4); Neutrophils % 57.6 % (38.7-73.9); White Blood Count 4.5 T/CUMM (4-12)
[2018-03-31 04:24] LABS: Platelet Count 66 T/CUMM (130-400)
[2018-03-31 04:43] LABS: Band Neutrophils 3 % (0-10); Eosinophils 4 % (0-10); Lymphocytes 24 % (20-55); Segmented Neutrophils 59 % (50-85)
[2018-03-31 04:44] LABS: Hypochromasia Slight; Platelet Estimate Decreased; Polychromasia Few
[2018-03-31 04:45] LABS: Total Cells Counted 100
[2018-03-31 04:53] LABS: Albumin 1.7 G/DL (3.4-5.0); Bilirubin,Total 8.3 MG/DL (0.2-1.0); Calcium 8.5 MG/DL (8.5-10.1); Osmolality,Calculated 279.5 MOS/KG (273-304); Potassium 4.1 MMOL/L (3.5-5.1); Total Protein 6.2 G/DL (6.4-8.3)
[2018-03-31] MEDS: MEROPENEM 1,000 MG in SODIUM CHLORIDE 0.9% 100 ML IV SCH ×2 (05:34→17:58)
[2018-03-31] MEDS ORDERED: HYDROCORTISONE 25 MG SUPP RECTAL PRN (08:39)
[2018-03-31] MEDS: LACTULOSE 20 GM/30 ML UDCUP PO SCH ×2 (08:50→20:22)
[2018-03-31] MEDS ORDERED: cefTRIAXone 1,000 MG in SYRINGE 1 EACH IV SCH (09:00)
[2018-03-31] MEDS: ASPIRIN EC 81 MG TABLET PO SCH (09:12)
[2018-03-31] MEDS: PANTOPRAZOLE 40 MG TABLET PO SCH (09:12)
[2018-03-31] MEDS: RIFAXIMIN 550 MG TABLET PO SCH ×2 (09:13→20:22)
[2018-03-31] MEDS: sitaGLIPtin 25 MG TABLET PO SCH (09:13)
[2018-03-31] MEDS: CALCIUM (CARBONATE)/VITAMIN D 600 MG-400 UNIT TABLET PO SCH (09:13)
[2018-03-31] MEDS: PHYTONADIONE 10 MG/1 ML AMP SUBCUT SCH (09:14)
[2018-03-31] MEDS: SPIRONOLACTONE 100 MG TABLET PO SCH ×2 (10:43→20:22)
[2018-03-31] MEDS ORDERED: SPIRONOLACTONE 50 MG TABLET PO ONE (11:00)
[2018-04-01 04:40] LABS: Hematocrit 26.9 VOL% (35.7-47.0); Red Blood Count 2.48 MC/CUMM (3.8-5.5); White Blood Count 4.7 T/CUMM (4-12)
[2018-04-01 04:41] LABS: Basophils # 0.1 10*3/uL (0.0-0.2); Basophils % 1.1 % (0.0-0.8); Eosinophils # 0.1 10*3/uL (0.0-0.87); Eosinophils % 2.3 % (0.00-10.9); Immature Granulocytes % 3.2 %; Immature Granulocytes Absolute 0.15 #; Lymphocytes # 1.3 10*3/uL (1.4-4.0); Lymphocytes % 26.5 % (21.3-54.2); Mean Corpuscular HGB Conc 33.5 GM/DL (32-36); Mean Corpuscular Hemoglobin 36 PG (27-34); Mean Corpuscular Volume 108.5 FL (87-102); Mean Platelet Volume 10.6 FL (9.6-12.0); Monocytes # 0.5 10*3/uL (0.11-0.8); Monocytes % 10.6 % (1.7-12.7); Neutrophils # 2.7 10*3/uL (1.4-7.4); Neutrophils % 56.3 % (38.7-73.9); Red Cell Distribution Width 24.1 % (9.3-17.3)
[2018-04-01 05:06] LABS: Calcium 8.3 MG/DL (8.5-10.1); Osmolality,Calculated 276.7 MOS/KG (273-304); Potassium 4.6 MMOL/L (3.5-5.1)
[2018-04-01 05:07] LABS: Platelet Count 54 T/CUMM (130-400)
[2018-04-01 05:13] LABS: Burr Cells Slight; Hypochromasia 1+; Ovalocytes Slight; Platelet Estimate Decreased
[2018-04-01] MEDS: MEROPENEM 1,000 MG in SODIUM CHLORIDE 0.9% 100 ML IV SCH ×2 (05:35→17:59)
[2018-04-01] MEDS: LEVOTHYROXINE 112 MCG TABLET PO SCH (06:29)
[2018-04-01] MEDS: INSULIN LISPRO 100 UNIT/ML SUBCUT SCH ×4 (09:04→21:12)
[2018-04-01] MEDS: FUROSEMIDE 20 MG TABLET PO SCH (09:38)
[2018-04-01] MEDS: sitaGLIPtin 25 MG TABLET PO SCH (09:38)
[2018-04-01] MEDS: CALCIUM (CARBONATE)/VITAMIN D 600 MG-400 UNIT TABLET PO SCH (09:38)
[2018-04-01] MEDS: RIFAXIMIN 550 MG TABLET PO SCH ×2 (09:38→21:10)
[2018-04-01] MEDS: LACTULOSE 20 GM/30 ML UDCUP PO SCH ×3 (09:38→23:00)
[2018-04-01] MEDS: SPIRONOLACTONE 100 MG TABLET PO SCH ×2 (09:38→21:10)
[2018-04-01] MEDS: PANTOPRAZOLE 40 MG TABLET PO SCH (09:38)
[2018-04-01] MEDS: PHYTONADIONE 10 MG/1 ML AMP SUBCUT SCH (09:39)
[2018-04-01] MEDS: ASPIRIN EC 81 MG TABLET PO SCH (09:39)
[2018-04-02 05:39] LABS: Basophils % 0.7 % (0.0-0.8); Eosinophils # 0.1 10*3/uL (0.0-0.87); Eosinophils % 2.3 % (0.00-10.9); Hematocrit 26.6 VOL% (35.7-47.0); Hemoglobin 8.6 GM/DL (12.0-16.0); Immature Granulocytes % 3.9 %; Immature Granulocytes Absolute 0.17 #; Lymphocytes # 1.4 10*3/uL (1.4-4.0); Lymphocytes % 30.6 % (21.3-54.2); Mean Corpuscular HGB Conc 32.3 GM/DL (32-36); Mean Corpuscular Hemoglobin 36 PG (27-34); Mean Corpuscular Volume 110.8 FL (87-102); Mean Platelet Volume 10.3 FL (9.6-12.0); Monocytes # 0.4 10*3/uL (0.11-0.8); Monocytes % 8.6 % (1.7-12.7); Neutrophils # 2.4 10*3/uL (1.4-7.4); Neutrophils % 53.9 % (38.7-73.9); Platelet Count 56 T/CUMM (130-400); Red Cell Distribution Width 23.5 % (9.3-17.3); White Blood Count 4.4 T/CUMM (4-12)
[2018-04-02 06:01] LABS: Albumin 1.6 G/DL (3.4-5.0); Bilirubin,Total 8.6 MG/DL (0.2-1.0)
[2018-04-02 06:02] LABS: Osmolality,Calculated 271.1 MOS/KG (273-304); Potassium 4.3 MMOL/L (3.5-5.1)
[2018-04-02 06:26] LABS: Anisocytosis 1+; Band Neutrophils 3 % (0-10); Eosinophils 3 % (0-10); Lymphocytes 24 % (20-55); Myelocytes 2 %; Segmented Neutrophils 65 % (50-85); Total Cells Counted 100
[2018-04-02 06:27] LABS: Hypochromasia 1+; Macrocytosis 2+; Platelet Estimate Decreased
[2018-04-02] MEDS: MEROPENEM 1,000 MG in SODIUM CHLORIDE 0.9% 100 ML IV SCH (06:50)
[2018-04-02] MEDS: INSULIN LISPRO 100 UNIT/ML SUBCUT SCH ×2 (08:44→12:22)
[2018-04-02] MEDS: LACTULOSE 20 GM/30 ML UDCUP PO SCH (10:07)
[2018-04-02] MEDS: sitaGLIPtin 25 MG TABLET PO SCH (10:07)
[2018-04-02] MEDS: PANTOPRAZOLE 40 MG TABLET PO SCH (10:07)
[2018-04-02] MEDS: FUROSEMIDE 20 MG TABLET PO SCH (10:07)
[2018-04-02] MEDS: SPIRONOLACTONE 100 MG TABLET PO SCH (10:07)
[2018-04-02] MEDS: CALCIUM (CARBONATE)/VITAMIN D 600 MG-400 UNIT TABLET PO SCH (10:07)
[2018-04-02] MEDS: RIFAXIMIN 550 MG TABLET PO SCH (10:08)
[2018-04-02] MEDS: PHYTONADIONE 10 MG/1 ML AMP SUBCUT SCH (10:08)
[2018-04-02] MEDS: LEVOTHYROXINE 112 MCG TABLET PO SCH (10:08)
[2018-04-02] MEDS: ASPIRIN EC 81 MG TABLET PO SCH (10:08)
[2018-04-02 11:41] VITALS: BP 103/56
== END 2018-04-02 13:45 | disposition home or self-care (01) | DRG 871 ==
LOC: SUATTDRO 14:21 → N.ICU 14:21 → N.2E 03-31 13:45
PROVIDERS: ADMIT Internal Medicine; ATTEND Internal Medicine

== ENCOUNTER 2018-04-23 10:06 | Inpatient (IN) ==
[2018-04-23 11:21] LABS: Basophils % 0.4 % (0.0-0.8); Eosinophils % 0.6 % (0.00-10.9); Hemoglobin 7.3 GM/DL (12.0-16.0); Immature Granulocytes Absolute 0.05 #; Lymphocytes # 1.2 10*3/uL (1.4-4.0); Lymphocytes % 24.9 % (21.3-54.2); Mean Corpuscular HGB Conc 33.2 GM/DL (32-36); Mean Corpuscular Hemoglobin 38 PG (27-34); Mean Corpuscular Volume 113.4 FL (87-102); Mean Platelet Volume 9.8 FL (9.6-12.0); Monocytes # 0.4 10*3/uL (0.11-0.8); Monocytes % 8.5 % (1.7-12.7); Neutrophils # 3.1 10*3/uL (1.4-7.4); Neutrophils % 64.6 % (38.7-73.9); Platelet Count 85 T/CUMM (130-400); Red Blood Count 1.94 MC/CUMM (3.8-5.5); Red Cell Distribution Width 19.9 % (9.3-17.3); White Blood Count 4.8 T/CUMM (4-12)
[2018-04-23 11:52] LABS: Apearance,Urine CLOUDY (Clear); Bacteria,Urine Moderate /HPF (Few); Bilirubin,Urine Negative (Negative); Blood, Urine Small mg/dL (Negative); Glucose,Urine (UA) Negative (Negative); Hyaline Casts,Urine 74 /LPF (0-3); Ketones,Urine Negative (Negative); Nitrite,Urine Negative (Negative); Protein,Urine 30 MG/DL; Squamous Epithelial Cell,Urine Occasional /HPF (0-10); Urine Color Yellow (Yellow); Urine Specific Gravity 1.011 (1.001-1.035); Urine Urobilinogen < 2.0 EU/DL (0.2-1.0); WBC,Urine 944 /HPF (0-6)
[2018-04-23 11:54] LABS: INR 1.7
[2018-04-23 12:07] LABS: Lactic Acid 3.3 MMOL/L (0.4-2.0)
[2018-04-23 12:10] LABS: Albumin 1.8 G/DL (3.4-5.0); Bilirubin,Total 6.9 MG/DL (0.2-1.0); Calcium 8.9 MG/DL (8.5-10.1); Osmolality,Calculated 291.3 MOS/KG (273-304); Potassium 3.8 MMOL/L (3.5-5.1)
[2018-04-23 12:12] LABS: Barbiturates Screen,Urine Negative (Negative); Benzodiazepines Screen,Urine Negative (Negative); Cannabinoid Screen,Urine Negative (Negative); Opiate Screen,Urine Negative (Negative); Phencyclidine Screen,Urine Negative (Negative)
[2018-04-23 12:41] LABS: Partial Thromboplastin Time 43.9 SECS (0-40)
[2018-04-24 03:54] LABS: Basophils % 0.4 % (0.0-0.8); Eosinophils % 0.8 % (0.00-10.9); Hematocrit 21.7 VOL% (35.7-47.0); Hemoglobin 6.9 GM/DL (12.0-16.0); Immature Granulocytes Absolute 0.05 #; Lymphocytes # 0.9 10*3/uL (1.4-4.0); Lymphocytes % 17.7 % (21.3-54.2); Mean Corpuscular HGB Conc 31.8 GM/DL (32-36); Mean Corpuscular Hemoglobin 38 PG (27-34); Mean Corpuscular Volume 118.6 FL (87-102); Monocytes # 0.5 10*3/uL (0.11-0.8); Monocytes % 9.9 % (1.7-12.7); Neutrophils # 3.5 10*3/uL (1.4-7.4); Neutrophils % 70.2 % (38.7-73.9); Red Blood Count 1.83 MC/CUMM (3.8-5.5); Red Cell Distribution Width 19.4 % (9.3-17.3)
[2018-04-24 03:55] LABS: Platelet Count 72 T/CUMM (130-400)
[2018-04-24 04:34] LABS: Albumin 1.6 G/DL (3.4-5.0); Bilirubin,Total 6.5 MG/DL (0.2-1.0); Calcium 8.2 MG/DL (8.5-10.1); Osmolality,Calculated 297.7 MOS/KG (273-304); Potassium 3.4 MMOL/L (3.5-5.1); Total Protein 6.2 G/DL (6.4-8.3)
[2018-04-24 05:21] LABS: Hypochromasia 1+; Macrocytosis 1+; Platelet Estimate Decreased
[2018-04-24 19:55] LABS: Hematocrit 28.8 VOL% (35.7-47.0)
[2018-04-24 19:58] LABS: Hemoglobin 9.2 GM/DL (12.0-16.0)
[2018-04-24 20:20] LABS: Lactic Acid 2.6 MMOL/L (0.4-2.0)
[2018-04-25 03:50] LABS: Basophils % 0.5 % (0.0-0.8); Eosinophils % 0.5 % (0.00-10.9); Hematocrit 28.2 VOL% (35.7-47.0); Hemoglobin 9.7 GM/DL (12.0-16.0); Immature Granulocytes % 1.4 %; Immature Granulocytes Absolute 0.08 #; Lymphocytes # 1.2 10*3/uL (1.4-4.0); Lymphocytes % 21.1 % (21.3-54.2); Mean Corpuscular HGB Conc 34.4 GM/DL (32-36); Mean Corpuscular Hemoglobin 36 PG (27-34); Mean Corpuscular Volume 104.1 FL (87-102); Mean Platelet Volume 9.4 FL (9.6-12.0); Monocytes # 0.5 10*3/uL (0.11-0.8); Monocytes % 9.4 % (1.7-12.7); NRBC # 0.02 10*3/uL; Neutrophils # 3.7 10*3/uL (1.4-7.4); Neutrophils % 67.1 % (38.7-73.9); Platelet Count 74 T/CUMM (130-400); Red Blood Count 2.71 MC/CUMM (3.8-5.5); Red Cell Distribution Width 24.1 % (9.3-17.3); White Blood Count 5.6 T/CUMM (4-12)
[2018-04-25 04:07] LABS: Albumin 1.6 G/DL (3.4-5.0); Bilirubin,Total 7.7 MG/DL (0.2-1.0); Calcium 8.2 MG/DL (8.5-10.1); Osmolality,Calculated 300.4 MOS/KG (273-304); Potassium 3.6 MMOL/L (3.5-5.1); Total Protein 6.5 G/DL (6.4-8.3)
[2018-04-25 19:08] LABS: Hematocrit 28.7 VOL% (35.7-47.0); Hemoglobin 9.3 GM/DL (12.0-16.0)
[2018-04-26 04:08] LABS: Basophils % 0.3 % (0.0-0.8); Eosinophils % 0.7 % (0.00-10.9); Hematocrit 27.2 VOL% (35.7-47.0); Hemoglobin 8.8 GM/DL (12.0-16.0); Immature Granulocytes % 1.2 %; Immature Granulocytes Absolute 0.07 #; Lymphocytes # 1.1 10*3/uL (1.4-4.0); Lymphocytes % 18.6 % (21.3-54.2); Mean Corpuscular HGB Conc 32.4 GM/DL (32-36); Mean Corpuscular Hemoglobin 35 PG (27-34); Mean Corpuscular Volume 107.5 FL (87-102); Mean Platelet Volume 9.8 FL (9.6-12.0); Monocytes # 0.5 10*3/uL (0.11-0.8); Monocytes % 8.4 % (1.7-12.7); NRBC # 0.02 10*3/uL; Neutrophils # 4.1 10*3/uL (1.4-7.4); Neutrophils % 70.8 % (38.7-73.9); Red Blood Count 2.53 MC/CUMM (3.8-5.5); Red Cell Distribution Width 24.9 % (9.3-17.3); White Blood Count 5.8 T/CUMM (4-12)
[2018-04-26 04:17] LABS: Platelet Count 75 T/CUMM (130-400)
[2018-04-26 04:46] LABS: Calcium 8.1 MG/DL (8.5-10.1); Osmolality,Calculated 303.1 MOS/KG (273-304); Potassium 3.5 MMOL/L (3.5-5.1)
[2018-04-26 04:51] LABS: Hypochromasia 1+; Platelet Estimate Decreased
[2018-04-27 05:25] LABS: Basophils # 0.1 10*3/uL (0.0-0.2); Basophils % 0.8 % (0.0-0.8); Eosinophils # 0.1 10*3/uL (0.0-0.87); Eosinophils % 2.2 % (0.00-10.9); Hematocrit 29.5 VOL% (35.7-47.0); Hemoglobin 9.8 GM/DL (12.0-16.0); Immature Granulocytes % 1.4 %; Immature Granulocytes Absolute 0.09 #; Lymphocytes # 1.3 10*3/uL (1.4-4.0); Lymphocytes % 20.3 % (21.3-54.2); Mean Corpuscular HGB Conc 33.2 GM/DL (32-36); Mean Corpuscular Hemoglobin 35 PG (27-34); Mean Corpuscular Volume 106.1 FL (87-102); Mean Platelet Volume 10.2 FL (9.6-12.0); Monocytes # 0.6 10*3/uL (0.11-0.8); Monocytes % 9.6 % (1.7-12.7); Neutrophils # 4.3 10*3/uL (1.4-7.4); Neutrophils % 65.7 % (38.7-73.9); Platelet Count 85 T/CUMM (130-400); Red Blood Count 2.78 MC/CUMM (3.8-5.5); Red Cell Distribution Width 24.7 % (9.3-17.3); White Blood Count 6.5 T/CUMM (4-12)
[2018-04-27 05:59] LABS: Albumin 1.7 G/DL (3.4-5.0); Calcium 8.2 MG/DL (8.5-10.1); Potassium 3.3 MMOL/L (3.5-5.1); Total Protein 6.6 G/DL (6.4-8.3)
[2018-04-27 06:01] LABS: Burr Cells Slight; Hypochromasia 1+; Ovalocytes Slight; Platelet Estimate Decreased
[2018-04-28 04:31] LABS: INR 2.2
[2018-04-28 04:49] LABS: PT Patient Result 22.1 SECS
[2018-04-28 04:52] LABS: Bilirubin,Total 7.7 MG/DL (0.2-1.0); Calcium 8.1 MG/DL (8.5-10.1); Osmolality,Calculated 305.9 MOS/KG (273-304); Potassium 3.5 MMOL/L (3.5-5.1); Total Protein 5.8 G/DL (6.4-8.3)
[2018-04-29 04:22] LABS: Basophils % 0.8 % (0.0-0.8); Eosinophils # 0.1 10*3/uL (0.0-0.87); Eosinophils % 2.5 % (0.00-10.9); Hematocrit 27.9 VOL% (35.7-47.0); Hemoglobin 9.1 GM/DL (12.0-16.0); Immature Granulocytes Absolute 0.04 #; Lymphocytes # 0.8 10*3/uL (1.4-4.0); Lymphocytes % 21.3 % (21.3-54.2); Mean Corpuscular HGB Conc 32.6 GM/DL (32-36); Mean Corpuscular Hemoglobin 36 PG (27-34); Mean Corpuscular Volume 109.4 FL (87-102); Mean Platelet Volume 9.5 FL (9.6-12.0); Monocytes # 0.4 10*3/uL (0.11-0.8); Monocytes % 11.2 % (1.7-12.7); Neutrophils # 2.5 10*3/uL (1.4-7.4); Neutrophils % 63.2 % (38.7-73.9); Red Blood Count 2.55 MC/CUMM (3.8-5.5); Red Cell Distribution Width 23.5 % (9.3-17.3); White Blood Count 3.9 T/CUMM (4-12)
[2018-04-29 04:35] LABS: Platelet Count 57 T/CUMM (130-400)
[2018-04-29 05:10] LABS: Calcium 8.2 MG/DL (8.5-10.1); Osmolality,Calculated 301.3 MOS/KG (273-304); Potassium 4.3 MMOL/L (3.5-5.1)
[2018-05-01 10:42] VITALS: BP 86/42
== END 2018-05-01 13:50 | disposition hospice, home (50) | DRG 871 ==
LOC: N.ED 10:06 → N.EDINP 12:48 → SUATTDRO 12:48 → N.ICU 13:22 → N.4E 04-30 13:36
PROVIDERS: ADMIT Family Medicine; ATTEND Hospitalist